=== PATIENT | male | born 1960 | race Caucasian/White ===

== ENCOUNTER → 2019-10-17 10:35 | Outpatient (CLI) | payer BC, SELFPAY ==
[2019-10-17 11:00] LABS: Bacteria Urine None Seen; RBC Urine None Seen (0-5/HPF)
[2019-10-17 11:52] LABS: Appearance Urine UA CLEAR; Bilirubin Urine UA NEGATIVE (NEGATIVE); Color Urine UA YELLOW; Glucose Urine UA NEGATIVE (Negative); Ketones Urine UA TRACE (NEGATIVE); Leukocyte Esterase Urine UA 1+ (NEGATIVE); Nitrite Urine UA NEGATIVE (Negative); Occult Blood Urine UA TRACE-LYSED (Negative); Protein Urine UA NEGATIVE (Negative); Urobilinogen Urine UA 0.2 E.U./dL (0.2)
[2019-10-17 12:01] LABS: Culture Indicated Urine Specimen Cultured; WBC Urine 1-5/HPF (0-5/HPF)
== END ==
PROVIDERS: PCP Student in an Organized Health Care Education/Training Program; Referring Provider Student in an Organized Health Care Education/Training Program; Visit Provider Student in an Organized Health Care Education/Training Program
DX: R31.9 Hematuria, unspecified (principal)
CPT/HCPCS: 81001; 87086

== ENCOUNTER → 2020-02-27 09:41 | Outpatient (CLI) | payer BC, SELFPAY ==
[2020-02-27 10:16] LABS: Hemoglobin A1C% w Est Avg Glu 7.5 % (4.0-6.0)
[2020-02-27 11:19] LABS: BUN Creatinine Ratio 22.5 (6-22); Blood Urea Nitrogen 18 mg/dL (9-20); Calcium 9.4 mg/dL (8.4-10.2); Carbon Dioxide 29 mmol/L (22-32); Chloride 98 mmol/L (98-107); Estimated Glomerular Filt Rate > 60.0 mL/min (>60); Glucose 299 mg/dL (80-110); HEMOLYSIS < 15 (0-50); Potassium 3.9 mmol/L (3.4-5.1); Sodium 136 mmol/L (137-145)
[2020-02-28 04:47] LABS: Creatinine Urine Random 75.1 mg/dL
[2020-02-28 04:54] LABS: Microalbumi Creatinin Ratio Ur 35.9 ug/mg CR (<30); Microalbumin Urine Random 2.7 mg/dL (0-1.6)
== END ==
PROVIDERS: PCP Student in an Organized Health Care Education/Training Program; Referring Provider Student in an Organized Health Care Education/Training Program; Visit Provider Student in an Organized Health Care Education/Training Program
DX: E11.65 Type 2 diabetes mellitus with hyperglycemia (principal); I10 Essential (primary) hypertension
CPT/HCPCS: 36415; 80048; 82043; 82570; 83036

== ENCOUNTER → 2020-07-11 08:30 | Outpatient (CLI) | payer BC, SELFPAY ==
[2020-07-11 10:40] LABS: Microalbumi Creatinin Ratio Ur 46.1 ug/mg CR (<30); Microalbumin Urine Random 7.1 mg/dL (0-1.6)
== END ==
PROVIDERS: PCP Student in an Organized Health Care Education/Training Program; Referring Provider Student in an Organized Health Care Education/Training Program; Visit Provider Student in an Organized Health Care Education/Training Program
DX: E11.65 Type 2 diabetes mellitus with hyperglycemia (principal)
CPT/HCPCS: 36415; 82043; 82570; 83036

== ENCOUNTER → 2021-03-09 12:08 | Outpatient (CLI) | payer BC, SELFPAY ==
[2021-03-09 13:54] LABS: Hemoglobin A1C% w Est Avg Glu 9.2 % (4.0-6.0)
[2021-03-09 14:43] LABS: Blood Urea Nitrogen 18 mg/dL (9-20); Estimated Glomerular Filt Rate > 60.0 mL/min (>60)
[2021-03-09 15:09] LABS: Prostate Specific Antigen Scrn 0.715 ng/mL (0.1-4.0)
== END ==
PROVIDERS: PCP Student in an Organized Health Care Education/Training Program; Referring Provider Student in an Organized Health Care Education/Training Program; Visit Provider Student in an Organized Health Care Education/Training Program
DX: E11.9 Type 2 diabetes mellitus without complications (principal); Z12.5 Encounter for screening for malignant neoplasm of prostate; I10 Essential (primary) hypertension
CPT/HCPCS: 36415; 82565; 83036; 84520; G0103

== ENCOUNTER 2021-05-30 11:38 | Emergency (ER) | payer BC, SELFPAY ==
[2021-05-30] VITALS (17 sets, daily range): BP systolic 170–185; BP diastolic 82–97; PULSE 61–68; RESP 11–21; TEMP 36.5; O2SAT 96–99; BMI 42.0
--- NOTE | 2021-05-30 12:10 | ED_ITS ---
HPI - Neuro Symptoms/Deficit General Chief Complaint: Altered Mental Status Stated Complaint: Rt side of face went numb, weird taste in mouth Time Seen by Provider: 05/30/21 11:55 Mode of arrival: Ambulatory History of Present Illness HPI Narrative: The patient was doing chores at home, he suddenly developed numbness to the right side of his face. Symptoms resolved within 2 minutes to 20 minutes. Although the numbness is gone, he feels like he is still coming out of dental anesthesia. He denies headache. He has no dental pain, no facial pain. He has no visual changes or eye discomfort. He has no visual deficits. He denies facial or extremity numbness or weakness. He denies confusion. The patient is hypertensive with systolic blood pressure 180 upon arrival. His normal blood pressure at home is in the 140-150 range. His blood pressures been moderate, but not treated. He is working out regularly, he is trying to lose weight and improve his health on all aspects. He has no history of CAD or CVA/TIA. On Anticoagulants: No Related Data Home Medications Medication Instructions Recorded Confirmed [cinnamon/chromiun] #0 17 03/09/21 Previous Rx's Medication Instructions Recorded Glucose: Test Strips strip BID #100 05/20/16 hydrochlorothiazide 25 mg tablet 25 mg PO DAILY #90 tab 01/05/21 alprazolam 0.5 mg tablet 0.5 mg PO BID PRN #10 tab 03/03/21 glipizide 5 mg tablet, extended 5 mg PO DAILY #90 tab 03/12/21 release 24 hr lisinopril 20 mg tablet 20 mg PO DAILY #90 tab 03/27/21 metformin 1,000 mg tablet 1,000 mg PO BIDCC #180 tab 03/27/21 levothyroxine 75 mcg tablet 75 mcg PO QDAY@0600 #90 tab 05/20/21 (Synthroid) omeprazole 20 mg capsule,delayed See Rx Instructions .ROUTE 05/20/21 release .COMPLEX #90 capsule lisinopril 5 mg tablet 5 mg PO DAILY #30 tab 05/30/21 Allergies Allergy/AdvReac Type Severity Reaction Status Date / Time Ijlpvfs-EXV-OrV Reductase Allergy Intermediate memory Verified 03/09/21 11:26 Inhibitor issues [Fafvfek-Ohh-Nrp Reductase Inhibitor] pneumonia vaccine Allergy Unknown severe Uncoded 03/09/21 11:26 itching and swelling in left arm Review of Systems Constitutional Constitutional: Reports as per HPI, Denies body ache(s), Denies chills, Denies fatigue and Denies fever(s) Eyes Eyes: Denies blurry vision and Denies change in vision ENT Ears, Nose, Mouth, and Throat: Denies vertigo, Denies dizziness, Denies sinus pain, Denies sinus pressure and Denies sore throat Cardiovascular Cardiovascular: Denies chest pain, Denies syncope, Denies rapid heart rate and Denies pedal edema Respiratory Respiratory: Denies chest congestion and Denies cough Gastrointestinal Gastrointestinal: Denies abdominal pain, Denies nausea and Denies vomiting Genitourinary Genitourinary: Denies dysuria Musculoskeletal Musculoskeletal: Denies arthralgias and Denies myalgias Integumentary/Breasts Skin/Breast: Denies lesions and Denies rash Neurologic Neurologic: Denies confusion, Denies vertigo, Denies dizziness and Denies syncope Psychiatric Psychiatric: Denies confusion Endocrine Endocrine: Denies fatigue Hematologic/Lymphatic On Anticoagulants: No Patient History Medical History (Updated 05/30/21 @ 16:20 by Maynor Gomez MD) Diabetes mellitus Hypertension Hypothyroidism Painless hematuria Social History Smoking Status: Never smoker Smoking Status: Never smoker Exam Initial Vital Signs Initial Vital Signs: Vital Signs Temperature 97.7 F 05/30/21 11:52 Pulse Rate 68 05/30/21 11:52 Respiratory Rate 18 05/30/21 11:52 Blood Pressure 182/91 H 05/30/21 11:52 Pulse Oximetry 97 05/30/21 11:52 Const General: cooperative, healthy appearing and comfortable Nutritional Appearance: obese Orientation: Orientation (X3) [facility] Head: normal to inspection, normocephalic and atraumatic Face and sinus: normal facial exam Mouth: oral mucosae normal Eyes Conjunctivae: conjunctivae normal Sclera: sclerae normal Cornea: corneas normal Pupils: PERRL EOM: EOM intact bilaterally Other: No visual field deficits Neck Neck: No lymphadenopathy, No tender and other (No bruits) Resp Auscultation: clear to auscultation bilaterally Cardio Rate: regular rate Rhythm: regular rhythm Heart Sounds: S1 normal, S2 normal and no murmurs Back/Spine/Pelvis Back: normal to inspection and No back tenderness Skin General: no rashes or lesions noted Neuro General: patient alert, patient oriented x3 and oriented (x3) Other: NIHSS is 0. Extrem General: normal to inspection, full ROM and no pedal edema Psych Appearance: grossly normal and well kempt Speech and Movement: speech and movement normal Course Course Course Narrative: Head CT is normal. Cardiovascular evaluation is normal other than hypertension. He had persistent systolic blood pressure in the upper 170-180 range. I started him lisinopril 5 mg p.o.. His BP improved to 170 systolic. I also start him on aspirin. He has normal nausea exam, he is normal head CT, but is complaints of the right facial numbness is still of some concern. He should follow-up with his PCM this coming week. Orders Ordered: ED Orders 05/30/21 12:07 Basic Metabolic Panel Stat Complete Blood Count AUTO DIFF Stat 05/30/21 12:23 CT head/brain wo con Stat Sodium Chloride (Normal Saline 0.9%) 1,000 mls @ 150 mls/hr IV CONT RICKY Last Admin: 05/30/21 13:15 Dose: 150 mls/hr Documented by: SPENCER Discontinued Medications Aspirin (Aspirin 81 Mg Chew Tab) 324 mg PO NOW ONE Stop: 05/30/21 13:54 Last Admin: 05/30/21 14:53 Dose: 324 mg Documented by: SPENCER Lisinopril (Lisinopril 5 Mg Tablet) 5 mg PO NOW ONE Stop: 05/30/21 14:24 Last Admin: 05/30/21 14:51 Dose: 5 mg Documented by: SPENCER Vital Signs Vital signs: Vital Signs - 8 hr 05/30/21 11:52 05/30/21 12:22 05/30/21 12:30 Temperature 97.7 F Pulse Rate 68 66 62 Respiratory Rate 18 Blood Pressure 182/91 H Pulse Oximetry 97 98 97 05/30/21 12:34 05/30/21 15:21 Temperature Pulse Rate 62 Respiratory Rate 18 Blood Pressure 185/87 H 181/87 H Pulse Oximetry 99 MDM - Neuro Symptoms/Deficit Lab Data Result diagrams: 05/30/21 12:07 05/30/21 12:07 Labs: Lab Results 05/30/21 05/30/21 Range/Units 12:07 12:07 WBC 6.3 (4.5-11.0) X10^3/uL RBC 4.52 (4.5-5.9) X10^6/uL Hgb 13.3 L (13.5-17.5) g/dL Hct 39.0 L (41-53) % MCV 86.3 (80-100) fL MCH 29.4 (26-34) PG MCHC 34.0 (30-36) % RDW 13.8 (11.6-14.8) % Plt Count 216 (150-400) X10^3/uL Neut % (Auto) 66.0 (50-75) % Lymph % (Auto) 22.3 L (25-40) % [place] % (Auto) 9.8 (3-14) % Eos % (Auto) 1.4 L (2-4) % Baso % (Auto) 0.5 (0-2) % Neut # (Auto) 4100 (6853-3445) /uL Lymph # (Auto) 1400 (2545-7984) /uL [place] # (Auto) 600 (0-900) /uL Eos # (Auto) 100 (0-450) /uL Baso # (Auto) 0 (0-100) /uL Sodium 138 (137-145) mmol/L Potassium 3.9 (3.4-5.1) mmol/L Chloride 100 (98-107) mmol/L Carbon Dioxide 30 (22-32) mmol/L BUN 14 (9-20) mg/dL Creatinine 0.86 (0.66-1.25) mg/dL Estimated GFR > 60.0 (>60) mL/min BUN/Creatinine Ratio 16.3 (6-22) Glucose 187 H (80-110) mg/dL Calcium 9.4 (8.4-10.2) mg/dL Point of Care Testing Glucose POC [address] scan - head: Radiologist's Impression: No acute process ECG Data Attestation: I personally reviewed and interpreted this ECG as follows: (Normal sinus rhythm rate 66 beats per minute. Questionable LVH. Normal intervals. No ectopy. No acute ST T wave changes.) Discharge Plan Departure Patient Disposition: Home Clinical Impression: Benign essential hypertension Instructions: Essential Hypertension Activity Restrictions/Additional Instructions: Lisinopril 5 mg daily. The prescription has been forwarded to [facility] pharmacy in [place]. I recommend baby aspirin 1 daily. Continue other medications. Monitor blood pressure daily. Keep a record of your home blood pressure monitoring and follow up with her PCM this coming week. Return here as necessary Prescriptions: New lisinopril 5 mg tablet 5 mg PO DAILY Qty: 30 0RF No Action Glucose: Test Strips BID Qty: 100 11RF [cinnamon/chromiun] Qty: 0 0RF hydrochlorothiazide 25 mg tablet 25 mg PO DAILY Qty: 90 1RF alprazolam 0.5 mg tablet 0.5 mg PO BID PRN (Reason: anxiety) Qty: 10 0RF metformin 1,000 mg tablet 1,000 mg PO BIDCC Qty: 180 1RF lisinopril 20 mg tablet 20 mg PO DAILY Qty: 90 1RF omeprazole 20 mg capsule,delayed release(DR/EC) See Rx Instructions .ROUTE .COMPLEX Qty: 90 2RF Dose Instruction: TAKE 1 CAPSULE BY MOUTH DAILY Rx Instructions: TAKE 1 CAPSULE BY MOUTH DAILY levothyroxine [Synthroid] 75 mcg tablet 75 mcg PO QDAY@0600 Qty: 90 2RF glipizide 5 mg tablet extended release 24hr 5 mg PO DAILY Qty: 90 1RF Referrals: Rex Salinas MD [Primary Care Provider] -
--- NOTE | 2021-05-30 12:23 | DI.CT.S_ITS ---
PROCEDURE: CT HEAD/BRAIN WO CON INDICATIONS: Right facial numbness TECHNIQUE: Noncontrast 4.5 mm thick angled axial sections acquired from the foramen magnum to the vertex, with coronal and sagittal reformats. For radiation dose reduction, the following was used: automated exposure control, adjustment of mA and/or kV according to patient size. COMPARISON: None. FINDINGS: Image quality: Excellent. CSF spaces: Basal cisterns are patent. No extra-axial fluid collections. The ventricles are symmetric in size and shape. Brain: No intracranial bleeds or masses. There is cerebral volume loss for age, with resultant ventricular and sulcal prominence. There are periventricular and deep white matter chronic small vessel ischemic changes. There is intracranial internal carotid artery atherosclerosis. Skull and face: Calvarium and visualized facial bones appear intact, without suspicious lesions. Sinuses: Visualized sinuses and mastoids are clear. IMPRESSION: No acute intracranial abnormality. Dictated by: Delroy Lynch M.D. on 05/30/2021 at 12:22 Approved by: Delroy Lynch M.D. on 05/30/2021 at 12:22
--- NOTE | 2021-05-30 12:28 | PC.NURSE ---
pt states at aproxx 1130 he had am episode lasting 3 min L sided face and lips numbess and tingling. Now pt states a funny taste in mouth like a Novocaine wearing off pt with full ROM and strength in all extremities sensation intact and neuro intact. EKG completed and DR Gomez in to asses pt.
[2021-05-30 13:05] LABS: Add Manual Diff / Slide Review NO; Basophils Absolute Auto 0 /uL (0-100); Basophils Percent Auto 0.5 % (0-2); Eosinophils Absolute Auto 100 /uL (0-450); Eosinophils Percent Auto 1.4 % (2-4); Hemoglobin 13.3 g/dL (13.5-17.5); Lymphocytes Absolute Auto 1400 /uL (1100-4500); Lymphocytes Percent Auto 22.3 % (25-40); Mean Corpuscular Hemoglobin 29.4 PG (26-34); Mean Corpuscular Volume 86.3 fL (80-100); Monocytes Absolute Auto 600 /uL (0-900); Monocytes Percent Auto 9.8 % (3-14); Neutrophils Absolute Auto 4100 /uL (1500-7000); Platelet Count 216 X10^3/uL (150-400); Red Blood Cell Count 4.52 X10^6/uL (4.5-5.9); Red Cell Distribution Width 13.8 % (11.6-14.8); White Blood Cell Count 6.3 X10^3/uL (4.5-11.0)
[2021-05-30 13:10] LABS: BUN Creatinine Ratio 16.3 (6-22); Blood Urea Nitrogen 14 mg/dL (9-20); Calcium 9.4 mg/dL (8.4-10.2); Carbon Dioxide 30 mmol/L (22-32); Chloride 100 mmol/L (98-107); Estimated Glomerular Filt Rate > 60.0 mL/min (>60); Glucose 187 mg/dL (80-110); HEMOLYSIS < 15 (0-50); Potassium 3.9 mmol/L (3.4-5.1); Sodium 138 mmol/L (137-145)
[2021-05-30] MEDS: SODIUM CHLORIDE 0.9% 1,000 ML 150 ML IV (13:15)
[2021-05-30] MEDS: lisinopriL 5 MG TABLET PO (14:51)
[2021-05-30] MEDS: ASPIRIN 81 MG CHEW TAB 324 MG PO (14:53)
== END 2021-05-30 16:31 | disposition home or self-care (01) ==
PROVIDERS: Emergency Provider Emergency Medicine; PCP Student in an Organized Health Care Education/Training Program
DX: R20.2 Paresthesia of skin (principal); I10 Essential (primary) hypertension
CPT/HCPCS: 36415; 70450; 80048; 82962; 85025; 93005; 93010; 96360; 96361; 99284; 99285

== ENCOUNTER → 2021-08-21 14:22 | Outpatient (CLI) | payer BC, SELFPAY ==
[2021-08-21 14:58] LABS: BUN Creatinine Ratio 17.2 (6-22); Blood Urea Nitrogen 16 mg/dL (9-20); Estimated Glomerular Filt Rate > 60.0 mL/min (>60)
[2021-08-21 15:07] LABS: Creatinine Urine Random 184.4 mg/dL
[2021-08-21 15:26] LABS: Microalbumi Creatinin Ratio Ur 200.1 ug/mg CR (<30); Microalbumin Urine Random 36.9 mg/dL (0-1.6)
[2021-08-22 07:13] LABS: Fructosamine 277 umol/L (0-285)
== END ==
PROVIDERS: PCP Student in an Organized Health Care Education/Training Program; Referring Provider Student in an Organized Health Care Education/Training Program; Visit Provider Student in an Organized Health Care Education/Training Program
DX: E11.29 Type 2 diabetes mellitus with other diabetic kidney complication (principal); R80.9 Proteinuria, unspecified; E11.9 Type 2 diabetes mellitus without complications
CPT/HCPCS: 36415; 82043; 82565; 82570; 82985; 84520

== ENCOUNTER 2021-09-16 23:53 | Emergency (ER) | payer BC, SELFPAY ==
[2021-09-17] VITALS (7 sets, daily range): BP systolic 155–191; BP diastolic 76–102; PULSE 58–68; RESP 18; TEMP 36.6; O2SAT 96–100; BMI 43.9
--- NOTE | 2021-09-17 00:06 | DI.RAD.S_ITS ---
PROCEDURE: XR CHEST 1V INDICATIONS: chest pain TECHNIQUE: One view of the chest was acquired. COMPARISON: None. FINDINGS: Surgical changes and devices: None. Lungs and pleura: Evaluation is limited by lordotic projection. No definite acute airspace opacities, with evaluation limited in the lung bases due to technique. No pleural effusions or pneumothorax. Mediastinum: Mediastinal contours appear normal. Heart size is enlarged. Bones and chest wall: No suspicious bony lesions. Overlying soft tissues appear unremarkable. IMPRESSION: 1. Limited study demonstrates no definite acute cardiopulmonary disease but evaluation of the lung bases is limited. If clinical concern persists, a repeat PA and lateral study may be performed for further evaluation. Dictated by: Shar Terrazas M.D. on 09/17/2021 at 0:41 Approved by: Shar Terrazas M.D. on 09/17/2021 at 0:42
[2021-09-17 00:29] LABS: Add Manual Diff / Slide Review NO; Basophils Absolute Auto 100 /uL (0-100); Basophils Percent Auto 0.7 % (0-2); Eosinophils Absolute Auto 200 /uL (0-450); Eosinophils Percent Auto 2.2 % (2-4); Hematocrit 38.7 % (41-53); Hemoglobin 13.2 g/dL (13.5-17.5); Lymphocytes Absolute Auto 2500 /uL (1100-4500); Lymphocytes Percent Auto 34.6 % (25-40); Mean Corpuscular HGB Conc 34.2 % (30-36); Mean Corpuscular Hemoglobin 29.6 PG (26-34); Mean Corpuscular Volume 86.5 fL (80-100); Monocytes Absolute Auto 700 /uL (0-900); Monocytes Percent Auto 9.4 % (3-14); Neutrophils Absolute Auto 3900 /uL (1500-7000); Neutrophils Percent Auto 53.1 % (50-75); Platelet Count 201 X10^3/uL (150-400); Red Blood Cell Count 4.47 X10^6/uL (4.5-5.9); Red Cell Distribution Width 14.4 % (11.6-14.8); White Blood Cell Count 7.3 X10^3/uL (4.5-11.0)
[2021-09-17 00:31] LABS: Alanine Aminotransferase 23 IU/L (<50); Albumin 4.6 g/dL (3.5-5.0); Albumin Globulin Ratio 1.4 (1.0-2.8); Alkaline Phosphatase 56 U/L (38-126); Aspartate Aminotransferase 18 IU/L (17-59); BUN Creatinine Ratio 25.6 (6-22); Bilirubin Total 0.4 mg/dL (0.2-1.3); Blood Urea Nitrogen 22 mg/dL (9-20); Calcium 9.3 mg/dL (8.4-10.2); Carbon Dioxide 27 mmol/L (22-32); Chloride 104 mmol/L (98-107); Creatine Kinase 118 U/L (55-170); Estimated Glomerular Filt Rate > 60.0 mL/min (>60); Globulin 3.3 g/dL (1.7-4.1); Glucose 85 mg/dL (80-110); HEMOLYSIS < 15 (0-50); Lipase 178 U/L (23-300); Magnesium 1.9 mg/dL (1.6-2.3); Potassium 3.5 mmol/L (3.4-5.1); Sodium 138 mmol/L (137-145); Total Protein 7.9 g/dL (6.3-8.2)
[2021-09-17 00:42] LABS: Troponin I 0.024 ng/mL (0.01-0.034)
[2021-09-17 00:46] LABS: CKMB % Relative Index 2.5 % (1.5-5.0); Creatine Kinase MB 2.97 ng/mL (<2.37)
[2021-09-17 01:18] LABS: Appearance Urine UA CLEAR; Bilirubin Urine UA NEGATIVE (NEGATIVE); Color Urine UA YELLOW; Glucose Urine UA NEGATIVE (Negative); Ketones Urine UA 1+ (NEGATIVE); Leukocyte Esterase Urine UA 3+ (NEGATIVE); Nitrite Urine UA NEGATIVE (Negative); Occult Blood Urine UA 1+ (Negative); Protein Urine UA NEGATIVE (Negative); Urobilinogen Urine UA 0.2 E.U./dL (0.2); pH Urine UA 5.5 (4.5-8.0)
[2021-09-17 01:31] LABS: Bacteria Urine None Seen; Culture Indicated Urine Specimen Cultured; RBC Urine 1-5/HPF (0-5/HPF); WBC Urine 10-30/HPF (0-5/HPF)
--- NOTE | 2021-09-17 02:39 | ED.BACK ---
HPI - Back Pain/Injury General Chief Complaint: Back Pain/Injury Stated Complaint: PAIN IN LEFT SIDE AND BACK Time Seen by Provider: 09/17/21 02:01 Source: patient History of Present Illness HPI Narrative: 61-year-old gentleman with a BMI of 45, hypertension, diabetes, hypothyroidism, presents with left-sided abdominal pain that radiates down into his flank and up into his left upper quadrant. Began this morning and has progressively gotten worse over the course of the day. He notes that he did have a bowel movement this morning that did not not influence the pain. He denies fevers, cough, vomiting. He has not had any chest pain or palpitations. No cough, lower extremity edema or orthopnea. Related Data Previous Rx's Medication Instructions Recorded Glucose: Test Strips strip BID #100 05/20/16 alprazolam 0.5 mg tablet 0.5 mg PO BID PRN #10 tab 03/03/21 lisinopril 20 mg tablet 20 mg PO DAILY #90 tab 03/27/21 metformin 1,000 mg tablet 1,000 mg PO BIDCC #180 tab 03/27/21 levothyroxine 75 mcg tablet 75 mcg PO QDAY@0600 #90 tab 05/20/21 (Synthroid) omeprazole 20 mg capsule,delayed See Rx Instructions .ROUTE 05/20/21 release .COMPLEX #90 capsule glipizide 5 mg tablet, extended 5 mg PO DAILY #90 tab 06/11/21 release 24 hr hydrochlorothiazide 25 mg tablet 25 mg PO DAILY #90 tab 07/06/21 carvedilol 6.25 mg tablet 6.25 mg PO BID #180 tab 08/25/21 oxycodone-acetaminophen 5 mg-325 1 tab PO Q6H PRN #14 tab 09/17/21 mg tablet Allergies Allergy/AdvReac Type Severity Reaction Status Date / Time Qmymilk-LNE-AvU Reductase Allergy Intermediate memory Verified 06/11/21 12:59 Inhibitor issues [Skahydm-Mtb-Fme Reductase Inhibitor] pneumonia vaccine Allergy Unknown severe Uncoded 06/11/21 12:59 itching and swelling in left arm Review of Systems Review of Systems Narrative: Remainder of complete review of systems is otherwise unremarkable except for that included in the HPI. Patient History Medical History Benign essential hypertension Hypothyroidism Painless hematuria Type 2 diabetes mellitus Social History Smoking Status: Never smoker Smoking Status: Never smoker Substance Use Type: does not use Exam Initial Vital Signs Initial Vital Signs: Vital Signs Temperature 97.8 F 09/17/21 00:00 Pulse Rate 68 09/17/21 00:00 Respiratory Rate 18 09/17/21 00:00 Blood Pressure 191/102 H 09/17/21 00:00 Pulse Oximetry 100 09/17/21 00:00 General: Healthy appearing, in no acute distress. Able to give a complete and coherent history. Well-nourished well-developed HEENT: Moist mucous membranes, normal sclera with reactive pupils, Neck: No JVD, supple Respiratory: Lungs are clear to auscultation, no wheezing no rales no rhonchi. Full and symmetrical air movement Cardiac: Regular rate and rhythm no murmurs no bruits Abdomen: Soft, obese, tender in the left upper quadrant radiating down into the left flank without rebound or guarding. Not particularly tender in the left or right lower quadrants. No epigastric or right upper quadrant tenderness. Skin: Warm and dry, no rashes Neurologic: Grossly neurologically intact with no obvious asymmetries or abnormalities Extremities: No trauma, well perfused Psych: Cooperative, appropriate insight and affect Course Orders Ordered: ED Orders 09/17/21 00:06 XR chest 1V Stat EKG-12 Lead Stat 09/17/21 00:11 Complete Blood Count AUTO DIFF Stat Comprehensive Metabolic Panel Stat Lipase Stat Magnesium Stat Troponin & CK Cardiac Panel Stat 09/17/21 00:52 Urinalysis and Microscopic Stat Urine Culture Stat 09/17/21 02:45 CT abdomen pelvis w con Stat Vital Signs Vital signs: Vital Signs - 8 hr 09/17/21 00:00 09/17/21 01:57 09/17/21 01:58 Temperature 97.8 F Pulse Rate 68 61 Respiratory Rate 18 Blood Pressure 191/102 H 157/76 H Pulse Oximetry 100 97 98 09/17/21 02:00 09/17/21 02:30 Temperature Pulse Rate 58 L 62 Respiratory Rate Blood Pressure 155/77 H 162/79 H Pulse Oximetry 96 96 MDM - Back Pain/Injury Lab Data Result diagrams: 09/17/21 00:11 09/17/21 00:11 Labs: Lab Results 09/17/21 09/17/21 09/17/21 Range/Units 00:11 00:11 00:52 WBC 7.3 (4.5-11.0) X10^3/uL RBC 4.47 L (4.5-5.9) X10^6/uL Hgb 13.2 L (13.5-17.5) g/dL Hct 38.7 L (41-53) % MCV 86.5 (80-100) fL MCH 29.6 (26-34) PG MCHC 34.2 (30-36) % RDW 14.4 (11.6-14.8) % Plt Count 201 (150-400) X10^3/uL Neut % (Auto) 53.1 (50-75) % Lymph % (Auto) 34.6 (25-40) % [place] % (Auto) 9.4 (3-14) % Eos % (Auto) 2.2 (2-4) % Baso % (Auto) 0.7 (0-2) % Neut # (Auto) 3900 (2098-3036) /uL Lymph # (Auto) 2500 (0367-8474) /uL [place] # (Auto) 700 (0-900) /uL Eos # (Auto) 200 (0-450) /uL Baso # (Auto) 100 (0-100) /uL Sodium 138 (137-145) mmol/L Potassium 3.5 (3.4-5.1) mmol/L Chloride 104 (98-107) mmol/L Carbon Dioxide 27 (22-32) mmol/L BUN 22 H (9-20) mg/dL Creatinine 0.86 (0.66-1.25) mg/dL Estimated GFR > 60.0 (>60) mL/min BUN/Creatinine Ratio 25.6 H (6-22) Glucose 85 (80-110) mg/dL Calcium 9.3 (8.4-10.2) mg/dL Magnesium 1.9 (1.6-2.3) mg/dL Total Bilirubin 0.4 (0.2-1.3) mg/dL AST 18 (17-59) IU/L ALT 23 (<50) IU/L Alkaline Phosphatase 56 (38-126) U/L Total Creatine Kinase 118 (55-170) U/L CK-MB (CK-2) 2.97 H (<2.37) ng/mL CK-MB (CK-2) Rel Index 2.5 (1.5-5.0) % Troponin I 0.024 (0.01-0.034) ng/mL Total Protein 7.9 (6.3-8.2) g/dL Albumin 4.6 (3.5-5.0) g/dL Globulin 3.3 (1.7-4.1) g/dL Albumin/Globulin Ratio 1.4 (1.0-2.8) Lipase 178 (23-300) U/L Urine Color Yellow Urine Appearance Clear Urine pH 5.5 (4.5-8.0) Ur Specific [place] 1.020 (1.000-1.035) Urine Protein Negative (Negative) Urine Glucose (UA) Negative (Negative) g/dL Urine Ketones 1+ H (NEGATIVE) Urine Occult Blood 1+ H (Negative) Urine Nitrate Negative (Negative) Urine Bilirubin Negative (NEGATIVE) Urine Urobilinogen 0.2 (0.2) E.U./dL Ur Leukocyte Esterase 3+ H (NEGATIVE) Urine RBC 1-5/hpf (0-5/HPF) Urine WBC 10-30/hpf H (0-5/HPF) Urine Bacteria None seen (None) Ur Culture Indicated? Specimen cultured Imaging Data Chest x-ray: Radiologist's Impression: FINDINGS:? ? Surgical changes and devices:? None.? ? Lungs and pleura:? Evaluation is limited by lordotic projection.? No definite acute airspace opacities, with evaluation limited in the lung bases due to technique.? No pleural effusions or pneumothorax.? ? Mediastinum:? Mediastinal contours appear normal.? Heart size is enlarged.? ? Bones and chest wall:? No suspicious bony lesions.? Overlying soft tissues appear unremarkable.? ? IMPRESSION:? ? 1. Limited study demonstrates no definite acute cardiopulmonary disease but evaluation of the lung bases is limited.? If clinical concern persists, a repeat PA and lateral study may be performed for further evaluation. ? ? Dictated by: Shar Terrazas M.D. on 09/17/2021 at 0:41 ? ? CT scan - abdomen/pelvis: Radiologist's Impression: No evidence of colitis, diverticulitis, bowel obstruction, obstructive uropathy or acute appendicitis. Ill-defined stranding noted at the root of the mesentery with associated prominent yet subcentimeter mesenteric lymph nodes. This is a nonspecific finding but can be seen in the setting of mesenteric panniculitis. Terri Stanley MD [facility] Narrative Medical decision making narrative: 61-year-old gentleman with increasing pain in the left upper and left flank area the last 24 hours. No fevers no diarrhea he states he is having regular bowel movements. Lab work is actually fairly reassuring. He has multiple white blood cells leukocyte esterase occult blood and ketones in his urine. He does have a history of asymptomatic hematuria. He is not having any urinary urgency, burning or frequency. With the description of the increasing pain in an area that does not completely correspond with the single organ her system I am going to suggest that we proceed with CT scan. Discharge Plan Departure Patient Disposition: Home Clinical Impression: Mesenteric panniculitis Activity Restrictions/Additional Instructions: Thank you for coming in today Your workup does not suggest an acute life-threatening issue today. There is no obvious infection, tumor or mass or anything that needs hospitalization for further workup at this time. Your to CT scan suggests that you may have mesenteric panniculitis. I have printed out some information for you to read. The most likely outcome for you pain is that it will go away by itself. If you are having worsening pain, diarrhea, bloody diarrhea, vomiting or other issues further workup and a definitive diagnosis of mesenteric panniculitis will need to be made. If you do have persistent symptoms, please follow-up with your primary care provider In the meantime, using 400 mg of ibuprofen (2 rohh-tje-cjfnzny pills) and 1 Tylenol every 6 hours can be very helpful in controlling pain. For severe pain you can use to ibuprofen and 1 Percocet. If you do choose to use Percocet please note that it can cause constipation which can make her symptoms worse. I wish you the best Prescriptions: New oxycodone-acetaminophen 5-325 mg tablet 1 tab PO Q6H PRN (Reason: pain) Qty: 14 0RF No Action Glucose: Test Strips BID Qty: 100 11RF alprazolam 0.5 mg tablet 0.5 mg PO BID PRN (Reason: anxiety) Qty: 10 0RF metformin 1,000 mg tablet 1,000 mg PO BIDCC Qty: 180 1RF Hold Instructions: needs labs lisinopril 20 mg tablet 20 mg PO DAILY Qty: 90 1RF omeprazole 20 mg capsule,delayed release(DR/EC) See Rx Instructions .ROUTE .COMPLEX Qty: 90 2RF Dose Instruction: TAKE 1 CAPSULE BY MOUTH DAILY Rx Instructions: TAKE 1 CAPSULE BY MOUTH DAILY levothyroxine [Synthroid] 75 mcg tablet 75 mcg PO QDAY@0600 Qty: 90 2RF hydrochlorothiazide 25 mg tablet 25 mg PO DAILY Qty: 90 1RF Hold Instructions: needs labs carvedilol 6.25 mg tablet 6.25 mg PO BID Qty: 180 2RF Rx Instructions: must administer with a meal/food glipizide 5 mg tablet extended release 24hr 5 mg PO DAILY Qty: 90 1RF Hold Instructions: needs labs Referrals: Rex Salinas MD [Primary Care Provider] -
--- NOTE | 2021-09-17 02:45 | DI.CT.S_ITS ---
PROCEDURE: CT ABDOMEN PELVIS W CON INDICATIONS: left side pain - flank and LUQ TECHNIQUE: After the administration of oral and IV contrast, axial sections were acquired from the lung bases to the pubic symphysis. Coronal and sagittal reformats were performed. For radiation dose reduction, the following was used: automated exposure control, adjustment of mA and/or kV according to patient size. COMPARISON: US, ABDOMEN COMPLETE, 12/29/2010, 7:30. FINDINGS: Image quality: Excellent. Lung bases: Unremarkable. Small hiatal hernia Heart: No significant findings. ABDOMEN: Liver: Unremarkable. Gallbladder: There are gallstones. No gallbladder wall thickening or pericholecystic fluid collection. Biliary ducts: Unremarkable. Pancreas: Unremarkable. Spleen: Unremarkable. Adrenal Glands: Unremarkable. Kidneys and Ureters: There are couple of nonobstructive stones in the inferior pole of the right kidney measuring 2 mm and 11 mm. The larger stone demonstrates CT density 990 HU. A 2.5 cm cyst is seen in right kidney and a 3.1 cm cyst is seen in the left kidney. Stomach and Bowel: Stomach, small bowel loops, and colon are normal in caliber. Normal appendix. Mild diverticulosis without diverticulitis Peritoneum: No abnormal intraperitoneal fluid. No free air. Ventral Wall: No hernia. Abdominal Nodes: No retroperitoneal or mesenteric adenopathy by size criteria. Mild mesenteric stranding and small normal-sized mesenteric lymph nodes are seen, nonspecific. Vessels: Aorta and inferior vena cava are normal in size. PELVIS: Pelvic Organs: Unremarkable. Bladder: Unremarkable. Pelvic Nodes: No enlarged lymph nodes. Miscellaneous: No inguinal hernias are seen. Bones: Moderate degenerative changes in lumbar spine. IMPRESSION: 1. A cause for left upper quadrant abdominal pain is not identified. 2. Cholelithiasis. No CT findings to suggest acute cholecystitis. 3. Nephrolithiasis in right kidney. No hydronephrosis. 4. Bilateral renal cysts. 5. Mild diverticulosis without diverticulitis. No significant discrepancy with the night shift manager radiology preliminary report. Dictated by: Esperanza Lr M.D. on 09/17/2021 at 8:05 Approved by: Esperanza Lr M.D. on 09/17/2021 at 8:12
[2021-09-17] MEDS: OXYCODONE/APAP 5/325 PREPACK 1 BOTTLE MISC (04:39)
== END 2021-09-17 04:44 | disposition home or self-care (01) ==
PROVIDERS: Emergency Provider Emergency Medicine; PCP Student in an Organized Health Care Education/Training Program
DX: K65.4 Sclerosing mesenteritis (principal)
CPT/HCPCS: 36415; 71045; 74177; 80053; 81001; 82550; 82553; 83690; 83735; 84484; 85025; 87086; 93005; 99284; Q9967

== ENCOUNTER → 2021-12-08 09:50 | Outpatient (CLI) | payer BC, SELFPAY ==
[2021-12-08 12:00] LABS: BUN Creatinine Ratio 17.3 (6-22); Blood Urea Nitrogen 13 mg/dL (9-20); Estimated Glomerular Filt Rate > 60 mL/min (>60)
[2021-12-08 12:26] LABS: Hemoglobin A1C% w Est Avg Glu 7.6 % (4.0-6.0)
== END ==
PROVIDERS: PCP Student in an Organized Health Care Education/Training Program; Referring Provider Student in an Organized Health Care Education/Training Program; Visit Provider Student in an Organized Health Care Education/Training Program
DX: E11.29 Type 2 diabetes mellitus with other diabetic kidney complication (principal); R80.9 Proteinuria, unspecified
CPT/HCPCS: 36415; 82565; 83036; 84520

== ENCOUNTER → 2022-04-13 14:35 | Outpatient (CLI) | payer BC, SELFPAY ==
--- NOTE | 2022-04-13 14:36 | DI.RAD.S_ITS ---
PROCEDURE: XR CHEST 2V INDICATIONS: right anterior chest pain, worse w/movement TECHNIQUE: 2 views of the chest were acquired. COMPARISON: [facility], CR, XR CHEST 1V, 09/17/2021, 0:08. FINDINGS: Surgical changes and devices: None. Lungs and pleura: Lungs are clear. No pleural effusions or pneumothorax. Mediastinum: Mediastinal contours are normal. Heart size is normal. Bones and chest wall: No suspicious bony abnormalities. Soft tissues appear unremarkable. IMPRESSION: No acute cardiopulmonary findings. Dictated by: Elsie Nichols M.D. on 04/13/2022 at 15:03 Approved by: Elsie Nichols M.D. on 04/13/2022 at 15:04
== END ==
PROVIDERS: PCP Student in an Organized Health Care Education/Training Program; Referring Provider Student in an Organized Health Care Education/Training Program; Visit Provider Student in an Organized Health Care Education/Training Program
DX: R07.9 Chest pain, unspecified (principal)
CPT/HCPCS: 71046

== ENCOUNTER → 2022-04-14 09:14 | Outpatient (CLI) | payer BC, SELFPAY ==
[2022-04-14 09:37] LABS: Add Manual Diff / Slide Review NO; Basophils Absolute Auto 100 /uL (0-100); Eosinophils Absolute Auto 200 /uL (0-450); Eosinophils Percent Auto 3.9 % (2-4); Hematocrit 38.5 % (41-53); Hemoglobin 13.3 g/dL (13.5-17.5); Lymphocytes Absolute Auto 1700 /uL (1100-4500); Lymphocytes Percent Auto 30.4 % (25-40); Mean Corpuscular HGB Conc 34.5 % (30-36); Mean Corpuscular Hemoglobin 29.5 PG (26-34); Mean Corpuscular Volume 85.6 fL (80-100); Monocytes Absolute Auto 600 /uL (0-900); Monocytes Percent Auto 10.3 % (3-14); Neutrophils Absolute Auto 3100 /uL (1500-7000); Neutrophils Percent Auto 54.4 % (50-75); Platelet Count 199 X10^3/uL (150-400); Red Cell Distribution Width 13.4 % (11.6-14.8); White Blood Cell Count 5.6 X10^3/uL (4.5-11.0)
[2022-04-14 09:43] LABS: D Dimer 438 ng/ml (<500)
[2022-04-14 09:46] LABS: Alanine Aminotransferase 75 IU/L (<50); Albumin 4.4 g/dL (3.5-5.0); Albumin Globulin Ratio 1.4 (1.0-2.8); Alkaline Phosphatase 71 U/L (38-126); Aspartate Aminotransferase 25 IU/L (17-59); Bilirubin Total 0.4 mg/dL (0.2-1.3); Blood Urea Nitrogen 13 mg/dL (9-20); Carbon Dioxide 27 mmol/L (22-32); Chloride 98 mmol/L (98-107); Creatine Kinase 75 U/L (55-170); Estimated Glomerular Filt Rate > 60 mL/min (>60); Globulin 3.2 g/dL (1.7-4.1); Glucose 299 mg/dL (80-110); HEMOLYSIS < 15 (0-50); Potassium 3.9 mmol/L (3.4-5.1); Sodium 136 mmol/L (137-145); Total Protein 7.6 g/dL (6.3-8.2)
== END ==
PROVIDERS: PCP Student in an Organized Health Care Education/Training Program; Referring Provider Student in an Organized Health Care Education/Training Program; Visit Provider Student in an Organized Health Care Education/Training Program
DX: R07.9 Chest pain, unspecified (principal); R07.89 Other chest pain
CPT/HCPCS: 80053; 82550; 84484; 85025; 85379

== ENCOUNTER → 2022-06-15 11:38 | Outpatient (ROUT) | payer OTHER, SELFPAY ==
[2022-06-15 11:59] LABS: Creatinine Urine Random 64.9 mg/dL
[2022-06-15 12:04] LABS: Microalbumi Creatinin Ratio Ur 115.5 ug/mg CR (<30); Microalbumin Urine Random 7.5 mg/dL (0-1.6)
== END ==
PROVIDERS: PCP Student in an Organized Health Care Education/Training Program; Visit Provider Student in an Organized Health Care Education/Training Program
DX: E11.9 Type 2 diabetes mellitus without complications (principal); R80.9 Proteinuria, unspecified
CPT/HCPCS: 82043; 82570

== ENCOUNTER 2022-08-12 08:13 | Day surgery (SDC) | payer OTHER, SELFPAY ==
--- NOTE | 2022-08-12 | PATH_ITS ---
[facility] Accession Number: [id number] No. of containers..01 Tissue . 01 Material submitted: . colon - SIGMOID POLYP . 01 Diagnosis: Sigmoid Colon Polyp: Hyperplastic polyp. MRV 08/18/2022 1238 Local . 01 Electronically signed: . Mike Valdes MD, PhD, Pathologist NPI- [id number] . 01 Gross description: . SIGMOID POLYP: Received in formalin is 1 fragment(s) of lester, soft tissue measuring 0.5 x 0.4 x 0.3 cm submitted entirely in 1 cassette(s) /CONNIE 08/16/2022 1605 Local . 01 Pathologist provided ICD-10: K63.5 . 01 CPT . 408017 Performed at: 01 [facility] [address] [place] [id number] MD Shar Johnston MD Phone: [phone]
[2022-08-12 08:31] VITALS: BP 191/102; PULSE 75; RESP 16; TEMP 36.4; O2SAT 97; BMI 45.3
--- NOTE | 2022-08-12 09:13 | PM.HP.1 ---
History of Present Illness History of Present Illness Date Patient Seen: 08/12/22 Time Patient Seen: 09:13 Chief complaint: SDC Narrative: Brenton is a 62-year-old man here for colonoscopy. His last 1 was 10 years ago and was normal. No known family history of colon cancer. Patient History Medical History Benign essential hypertension Hypothyroidism Painless hematuria Type 2 diabetes mellitus Family & Social History Social History: household members none Tobacco & Substance use: Smoking Status Never smoker alcohol intake never Substance Use Type does not use Meds Home Medications and Allergies Home Medications Medication Instructions Recorded Confirmed Type Glucose: Test Strips strip BID ##100 05/20/16 06/15/22 Rx omeprazole 20 mg capsule,delayed See Rx Instructions .Route 11/25/21 08/12/22 Rx release .COMPLEX #90 caps lisinopril 20 mg tablet 20 mg PO DAILY #90 tabs 12/28/21 08/12/22 Rx levothyroxine 75 mcg tablet 75 mcg PO QDAY@0600 #90 tabs 02/15/22 08/12/22 Rx (Synthroid) glipizide 10 mg tablet, extended 10 mg PO DAILY #90 tabs 06/15/22 08/12/22 Rx release 24 hr metformin 1,000 mg tablet 1,000 mg PO BIDCC #180 tabs 06/22/22 08/12/22 Rx hydrochlorothiazide 25 mg tablet 25 mg PO DAILY #90 tabs 06/29/22 08/12/22 Rx Allergies Allergy/AdvReac Type Severity Reaction Status Date / Time Aztdjni-IRS-WjV Reductase Allergy Intermediate memory Verified 08/12/22 08:27 Inhibitor issues [Plqesui-Ahs-Sks Reductase Inhibitor] carvedilol AdvReac Intermediate Weight Gain Verified 08/12/22 08:27 pneumonia vaccine Allergy Unknown severe Uncoded 06/15/22 08:03 itching and swelling in left arm Exam Vital Signs (past 8 hours): - 08/12/22 08:31 Temperature 97.6 F Pulse Rate 75 Respiratory Rate 16 Blood Pressure 191/102 H Pulse Oximetry 97 Oxygen Delivery Method Room Air Oxygen Delivery Method Room Air Const General: No acute distress Resp Effort & Inspection: normal respiratory effort Assessment & Plan Assessment and plan (1) Colon cancer screening: Status: Acute Plan We reviewed the risks and benefits of colonoscopy and he would like to proceed. Time Spent With Patient Critical Care time: I spent a total of [] minutes of critical care time on this patient's care today; this time is exclusive of procedural time.
--- NOTE | 2022-08-12 09:38 | P.HP_ITS ---
History of Present Illness History of Present Illness Chief complaint: [facility] [place] Narrative: Brenton is a 62-year-old man here for colonoscopy. His last 1 was 10 years ago and was normal. No known family history of colon cancer. Patient History Medical History Benign essential hypertension Hypothyroidism Painless hematuria Type 2 diabetes mellitus Family & Social History Social History: household members none Tobacco & Substance use: Smoking Status Never smoker alcohol intake never Substance Use Type does not use Meds Home Medications and Allergies Home Medications Medication Instructions Recorded Confirmed Type Glucose: Test Strips strip BID ##100 05/20/16 06/15/22 Rx omeprazole 20 mg capsule,delayed See Rx Instructions .Route 11/25/21 08/12/22 Rx release .COMPLEX #90 caps lisinopril 20 mg tablet 20 mg PO DAILY #90 tabs 12/28/21 08/12/22 Rx levothyroxine 75 mcg tablet 75 mcg PO QDAY@0600 #90 tabs 02/15/22 08/12/22 Rx (Synthroid) glipizide 10 mg tablet, extended 10 mg PO DAILY #90 tabs 06/15/22 08/12/22 Rx release 24 hr metformin 1,000 mg tablet 1,000 mg PO BIDCC #180 tabs 06/22/22 08/12/22 Rx hydrochlorothiazide 25 mg tablet 25 mg PO DAILY #90 tabs 06/29/22 08/12/22 Rx Allergies Allergy/AdvReac Type Severity Reaction Status Date / Time Yzerqau-GBV-CcZ Reductase Allergy Intermediate memory Verified 08/12/22 08:27 Inhibitor issues [Oddhlxu-Jeq-Ffb Reductase Inhibitor] carvedilol AdvReac Intermediate Weight Gain Verified 08/12/22 08:27 pneumonia vaccine Allergy Unknown severe Uncoded 06/15/22 08:03 itching and swelling in left arm Exam Vital Signs (past 8 hours): - 08/12/22 08:31 Temperature 97.6 F Pulse Rate 75 Respiratory Rate 16 Blood Pressure 191/102 H Pulse Oximetry 97 Oxygen Delivery Method Room Air Oxygen Delivery Method Room Air Assessment & Plan Time Spent With Patient Critical Care time: I spent a total of [] minutes of critical care time on this patient's care today; this time is exclusive of procedural time.
[2022-08-12 10:11] VITALS: BP 113/74; PULSE 80; RESP 20; TEMP 36.2; O2SAT 95
--- NOTE | 2022-08-12 10:13 | PM.OP.COLON ---
Operative Date/Time/Diagnoses Date of procedure: 08/12/22 Time of procedure: 10:13 Pre-op diagnosis: Colon cancer screening Post-op diagnosis: same Procedure & Clinicians Study performed: Colonoscopy Same procedure as scheduled: Yes Surgeon: Reggie Abbasi Procedure Notes Procedure in detail: Surgeon: Reggie Abbasi MD Anesthesia: [facility] PARENT AIDE Procedure: The patient was brought to the endoscopy suite, placed in left lateral decubitus position. The patient was connected to monitoring devices. A time-out was performed. Sedation was administered. Once the patient was adequately sedated, a digital rectal exam was performed and was normal. The scope was then inserted and advanced to the cecum where the appendiceal orifice was identified and photographed. The scope was then slowly withdrawn over greater than 6 minutes. The mucosa was thoroughly inspected. There was 1 small polyp, roughly 4 mm, in the sigmoid colon removed with a cold snare. The scope was retroflexed in the rectum. No other abnormalities were seen. The scope was straightened and removed. The patient was awakened and brought to recovery. Scope withdrawal time: 11 minutes Sedation time: 13 minutes EBL: 2 mL Findings: 4 mm polyp in the sigmoid colon Post-procedure Disposition: PACU
[2022-08-12 10:14] VITALS: PULSE 92; RESP 17; O2SAT 95
[2022-08-12 10:24] VITALS: BP 111/76; PULSE 73; RESP 11; TEMP 36.2; O2SAT 95
== END 2022-08-12 10:45 | disposition home or self-care (01) ==
PROVIDERS: PCP Student in an Organized Health Care Education/Training Program; Referring Provider Surgery; Visit Provider Surgery
PROC: 0DJD8ZZ Inspection of Lower Intestinal Tract, Via Natural or Artificial Opening Endoscopic (ICD-10-PCS; CPT 45378; principal; 2022-08-12 09:15)
DX: Z12.11 Encounter for screening for malignant neoplasm of colon (principal); K63.5 Polyp of colon
CPT/HCPCS: 45385; J2704

== ENCOUNTER → 2022-09-16 08:22 | Outpatient (CLI) | payer OTHER, SELFPAY ==
[2022-09-16 09:52] LABS: BUN Creatinine Ratio 17.5 (6-22); Blood Urea Nitrogen 14 mg/dL (9-20); Calcium 9.1 mg/dL (8.4-10.2); Carbon Dioxide 31 mmol/L (22-32); Chloride 94 mmol/L (98-107); Creatinine Urine Random 95.3 mg/dL; Estimated Glomerular Filt Rate > 60 mL/min (>60); Glucose 190 mg/dL (80-110); HEMOLYSIS < 15 (0-50); Potassium 3.9 mmol/L (3.4-5.1); Sodium 135 mmol/L (137-145)
[2022-09-16 09:56] LABS: Microalbumi Creatinin Ratio Ur 121.7 ug/mg CR (<30); Microalbumin Urine Random 11.6 mg/dL (0-1.6)
[2022-09-17 09:38] LABS: Labcorp Hemoglobin (Hb) A1c 8.7 % (4.8-5.6)
== END ==
PROVIDERS: PCP Student in an Organized Health Care Education/Training Program; Referring Provider Student in an Organized Health Care Education/Training Program; Visit Provider Student in an Organized Health Care Education/Training Program
DX: E11.29 Type 2 diabetes mellitus with other diabetic kidney complication (principal); R80.9 Proteinuria, unspecified
CPT/HCPCS: 36415; 80048; 82043; 82570; 83036

== ENCOUNTER → 2023-01-08 08:27 | Outpatient (CLI) | payer OTHER, SELFPAY ==
[2023-01-08 09:06] LABS: Creatinine Urine Random 224.5 mg/dL
[2023-01-08 09:10] LABS: Microalbumi Creatinin Ratio Ur 69.4 ug/mg CR (<30); Microalbumin Urine Random 15.6 mg/dL (0-1.6)
[2023-01-08 09:22] LABS: BUN Creatinine Ratio 23.9 (6-22); Blood Urea Nitrogen 22 mg/dL (9-20); Calcium 9.4 mg/dL (8.4-10.2); Carbon Dioxide 27 mmol/L (22-32); Chloride 100 mmol/L (98-107); Cholesterol 250 mg/dL (140-199); Estimated Glomerular Filt Rate > 60 mL/min (>60); Glucose 126 mg/dL (80-110); HDL Cholesterol 42 mg/dL (40-60); HEMOLYSIS < 15 (0-50); LDL Cholesterol Calculated 167 mg/dL (<100); Potassium 4.2 mmol/L (3.4-5.1); Sodium 138 mmol/L (137-145); Triglycerides 207 mg/dL (35-150)
[2023-01-08 09:50] LABS: Thyroid Stimulating Hormone 2.93 uIU/mL (0.47-4.68)
== END ==
PROVIDERS: PCP Student in an Organized Health Care Education/Training Program; Referring Provider Pediatrics; Visit Provider Pediatrics
DX: E11.9 Type 2 diabetes mellitus without complications (principal); R80.9 Proteinuria, unspecified; E11.69 Type 2 diabetes mellitus with other specified complication; E78.5 Hyperlipidemia, unspecified; E03.9 Hypothyroidism, unspecified
CPT/HCPCS: 36415; 80048; 80061; 82043; 82570; 83036; 84443

== ENCOUNTER → 2023-01-21 14:48 | Outpatient (CLI) | payer OTHER, SELFPAY ==
--- NOTE | 2023-01-21 14:50 | DI.RAD.S_ITS ---
PROCEDURE: XR WRIST RT MIN 3V INDICATIONS: fall on outstretched hand, tender lateral dorsal carpal bone TECHNIQUE: 4 views of the wrist were acquired. COMPARISON: None. FINDINGS: Bones: Cortical irregularity involving base of radial styloid consistent with up to 1 mm diastasis and fracture line extending to radiocarpal joint space. No other fracture or dislocation. 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 Scaphoid view: Scaphoid is grossly intact. Soft tissues: No suspicious soft tissue calcifications. IMPRESSION: Acute minimally displaced fracture through base of radial styloid as above. Dictated by: Yared Bennett M.D. on 01/21/2023 at 15:19 Approved by: Yared Bennett M.D. on 01/21/2023 at 15:25
== END ==
PROVIDERS: PCP Pediatrics; Referring Provider Physician Assistant; Visit Provider Physician Assistant
DX: S52.514A Nondisplaced fracture of right radial styloid process, initial encounter for closed fracture (principal); M25.531 Pain in right wrist; W19.XXXA Unspecified fall, initial encounter
CPT/HCPCS: 73110

== ENCOUNTER 2023-04-16 09:51 | Emergency (ER) | payer OTHER, SELFPAY ==
[2023-04-16] VITALS (21 sets, daily range): BP systolic 128–196; BP diastolic 67–85; PULSE 64–101; RESP 16; TEMP 36.9–38.2; O2SAT 94–97; BMI 43.2
--- NOTE | 2023-04-16 10:02 | DI.RAD.S_ITS ---
PROCEDURE: XR CHEST 1V INDICATIONS: suspected sepsis TECHNIQUE: One view of the chest was acquired. COMPARISON: [facility], CR, XR CHEST 2V, 04/13/2022, 14:38. FINDINGS: Surgical changes and devices: None. Lungs and pleura: Lungs are clear. No pleural effusions or pneumothorax. Mediastinum: Mediastinal contours appear normal. Heart size is normal. Bones and chest wall: No suspicious bony lesions. Overlying soft tissues appear unremarkable. IMPRESSION: Portable chest within normal limits for age. Dictated by: Reinier Tobin M.D. on 04/16/2023 at 9:19 Approved by: Reinier Tobin M.D. on 04/16/2023 at 9:20
[2023-04-16 10:16] LABS: Add Manual Diff / Slide Review NO; Basophils Absolute Auto 0 /uL (0-100); Basophils Percent Auto 0.2 % (0-2); Eosinophils Absolute Auto 0 /uL (0-450); Hematocrit 41.8 % (41-53); Hemoglobin 14.3 g/dL (13.5-17.5); Lymphocytes Absolute Auto 500 /uL (1100-4500); Lymphocytes Percent Auto 3.4 % (25-40); Mean Corpuscular HGB Conc 34.2 % (30-36); Mean Corpuscular Hemoglobin 29.4 PG (26-34); Monocytes Absolute Auto 1100 /uL (0-900); Monocytes Percent Auto 7.1 % (3-14); Neutrophils Absolute Auto 13500 /uL (1500-7000); Neutrophils Percent Auto 89.3 % (50-75); Platelet Count 172 X10^3/uL (150-400); Red Blood Cell Count 4.86 X10^6/uL (4.5-5.9); Red Cell Distribution Width 13.9 % (11.6-14.8); White Blood Cell Count 15.1 X10^3/uL (4.5-11.0)
[2023-04-16] MEDS: ACETAMINOPHEN 325 MG TABLET 975 MG PO (10:18)
[2023-04-16] MEDS: SODIUM CHLORIDE 0.9% 1,000 ML 1000 ML IV (10:18)
[2023-04-16 10:21] LABS: INR 1.3 (0.9-1.3); Prothrombin Time 14.6 SECONDS (10.1-12.7)
[2023-04-16 10:23] LABS: PTT Partial Thromboplastin Tim 31 SECONDS (26-36)
[2023-04-16 10:25] LABS: Alanine Aminotransferase 24 IU/L (<50); Albumin 4.6 g/dL (3.5-5.0); Albumin Globulin Ratio 1.2 (1.0-2.8); Alkaline Phosphatase 60 U/L (38-126); Aspartate Aminotransferase 14 IU/L (17-59); BUN Creatinine Ratio 14.9 (6-22); Bilirubin Total 1.1 mg/dL (0.2-1.3); Blood Urea Nitrogen 26 mg/dL (9-20); Calcium 9.8 mg/dL (8.4-10.2); Carbon Dioxide 28 mmol/L (22-32); Chloride 90 mmol/L (98-107); Estimated Glomerular Filt Rate 44 mL/min (>60); Globulin 3.7 g/dL (1.7-4.1); Glucose 154 mg/dL (80-110); HEMOLYSIS < 15 (0-50); Lactate (Lactic Acid) 1.7 mmol/L (0.7-2.1); Lipase 63 U/L (23-300); Potassium 3.5 mmol/L (3.4-5.1); Sodium 130 mmol/L (137-145); Total Protein 8.3 g/dL (6.3-8.2)
[2023-04-16 10:41] LABS: Procalcitonin 1.35 ng/mL (<0.5)
[2023-04-16 10:43] LABS: Influenza A - CEPHEID Flu A NEGATIVE (NEGATIVE); Influenza B - CEPHEID Flu B NEGATIVE (NEGATIVE); Respiratory Syncytial Virus Negative (Negative)
[2023-04-16 10:45] LABS: COVID-19 CEPHEID 4-PLEX PCR Negative (Negative)
--- NOTE | 2023-04-16 11:18 | ED.FEVER ---
HPI - Fever General Chief Complaint: Fever Stated Complaint: Gall Bladder attack/ fever/ no energy Time Seen by Provider: 04/16/23 10:53 Source: patient Mode of arrival: Family Vehicle Limitations: no limitations History of Present Illness HPI Narrative: This is a 62-year-old male diabetic, hypertensive, hypothyroidism who presents with complaint of right-sided abdominal pain in the lower abdomen that started , he would nausea and vomiting that day by Tuesday it had resolved in his nausea and vomiting had resolved. He developed a fever today. Patient states he is not having any abdominal pain, no back or flank pain. He denies any cold cough congestion. No headache, no neck pain, does not have any nausea or vomiting at this time. States his appetite has been good. He denies any issues diarrhea or black or bloody stools. States he is not had a bowel movement since . Is passing gas. He states no black or bloody stools on . He denies any dysuria, urgency or frequency. He states side little bit of rash in his inner forearm but no other skin changes. Patient states it felt very similar to when he had a gallbladder attack 18 years ago. He does still have his gallbladder he also still has a appendix. He is never had kidney stones. States he never had any prior surgeries. States he has sensitivity to statins, no tobacco, alcohol or illicit. New primary care is Dr. Romero. Related Data Home Medications Medication Instructions Recorded Confirmed aspirin 81 mg tablet,delayed 81 mg PO DAILY 09/21/22 04/14/23 release Previous Rx's Medication Instructions Recorded Glucose: Test Strips strip BID ##100 05/20/16 omeprazole 20 mg capsule,delayed See Rx Instructions .Route 08/24/22 release .COMPLEX #90 caps lisinopril 20 mg tablet 20 mg PO DAILY #90 tabs 09/23/22 metformin 1,000 mg tablet 1,000 mg PO BIDCC #180 tabs 01/07/23 hydrochlorothiazide 25 mg tablet 25 mg PO DAILY #90 tabs 02/03/23 levothyroxine 75 mcg tablet 75 mcg PO QDAY@0600 #90 tabs 03/01/23 (Synthroid) alprazolam 0.5 mg tablet 0.5 mg PO .prn #10 tabs 04/14/23 tirzepatide 5 mg/0.5 mL 5 mg (0.5 mL) SUBCUT QWEEK #2 mL 04/14/23 subcutaneous pen injector (Juana) Allergies Allergy/AdvReac Type Severity Reaction Status Date / Time Xlxmhxl-QPW-SpP Reductase Allergy Intermediate memory Verified 04/16/23 09:59 Inhibitor issues [Xsjxytb-Xiz-Yaq Reductase Inhibitor] carvedilol AdvReac Intermediate Weight Gain Verified 04/16/23 09:59 pneumonia vaccine Allergy Unknown severe Uncoded 04/16/23 09:59 itching and swelling in left arm Review of Systems Review of Systems ROS Unobtainable: All systems reviewed & are unremarkable except as noted in HPI and below Patient History Medical History Type 2 diabetes mellitus Painless hematuria Benign essential hypertension Hypothyroidism Social History household members: none Smoking Status: Never smoker alcohol intake: never Smoking Status: Never smoker Substance Use Type: marijuana Exam Narrative Exam Narrative: GEN: Obese male, alert and oriented x 3, patient appears to be in mild distress. Patient is diaphoretic and warm to the touch HEENT: Atraumatic, pupils are equal round reactive to light, extraocular movements are intact, nares are clear, there is no conjunctival pallor. Throat is clear without any exudates, erythema, tonsillar enlargement or uvular deviation HEART: Regular rate and rhythm without murmur, clicks, rubs. Pulses are equal in upper and lower extremities LUNGS:Lungs clear to auscultation, no wheezes, rales, crackles, chest moves symmetrically, no tachypnea accessory muscle use. No cough on examination. ABD:bowel sounds normal, soft, non-tender, no guarding, rebound, rigidity, no masses noted, no hepatosplenomegaly :No CVA tenderness MSCL: Non-tender, no muscle atrophy, muscles strength 5/5 upper and lower extremities, full range of motion, normal gait NEURO:CN 2-12 intact SKIN: No obvious rash, erythema, no petechiae, no ecchymosis or other skin changes noted. Initial Vital Signs Initial Vital Signs: Vital Signs Temperature 100.7 F H 04/16/23 09:57 Pulse Rate 100 H 04/16/23 09:57 Respiratory Rate 16 04/16/23 09:57 Blood Pressure 196/85 H 04/16/23 09:57 Pulse Oximetry 97 04/16/23 09:57 Oxygen Delivery Method Room Air 04/16/23 09:57 Course Orders Ordered: ED Orders 04/16/23 10:00 Complete Blood Count AUTO DIFF Stat Comprehensive Metabolic Panel Stat Covid-19 + FLU A/B + RSV - PCR Stat Lactate (Lactic Acid) Stat Lipase Stat PTT Partial Thromboplastin Shayan Stat Procalcitonin Stat Prothrombin Time INR Stat 04/16/23 10:02 XR chest 1V Stat RT Consult Eval and Treat NOW 04/16/23 10:20 Blood Culture Stat 04/16/23 10:32 EKG-12 Lead Stat 04/16/23 11:34 Urine Culture Stat Urine Microscopic Stat 04/16/23 12:02 CT abdomen pelvis w con Stat Discontinued Medications Acetaminophen (Acetaminophen 325 Mg Tablet) 975 mg PO NOW ONE Stop: 04/16/23 10:04 Last Admin: 04/16/23 10:18 Dose: 975 mg Documented By: YOLANDE Sodium Chloride (Normal Saline 0.9%) 1,000 mls @ 1,000 mls/hr IV BOLUS ONE Stop: 04/16/23 11:01 Last Infusion: 04/16/23 13:25 Dose: Infused Documented By: Admin: 04/16/23 10:18 Dose: 1,000 mls/hr Documented By: YOLANDE Ceftriaxone Sodium 2,000 mg/ (Sodium Chloride) 100 mls @ 200 mls/hr IV NOW ONE Stop: 04/16/23 12:03 Last Infusion: 04/16/23 13:07 Dose: Infused Documented By: Admin: 04/16/23 12:13 Dose: 200 mls/hr Documented By: AMGurjit Sodium Chloride (Normal Saline 0.9%) 1,000 mls @ 150 mls/hr IV CONT RICKY Last Infusion: 04/16/23 16:47 Dose: Infused Documented By: Infusion: 04/16/23 16:46 Dose: 150 mls/hr Documented By: Admin: 04/16/23 13:26 Dose: 150 mls/hr Documented By: TEJINDER Ibuprofen (Ibuprofen 400 Mg Tablet) 600 mg PO NOW ONE Stop: 04/16/23 11:30 Last Admin: 04/16/23 11:33 Dose: 600 mg Documented By: AMV Ondansetron HCl (Ondansetron 4 Mg/2 Ml Inj) 4 mg IV NOW PRN PRN Reason: Nausea And Vomiting Ondansetron HCl (Ondansetron 4 Mg Odt) 4 mg SL NOW PRN PRN Reason: Nausea And Vomiting Vital Signs Vital signs: Vital Signs - 8 hr 04/16/23 10:49 04/16/23 11:00 04/16/23 11:00 Temperature Pulse Rate 92 H 93 H Blood Pressure 183/79 H Pulse Oximetry 95 95 04/16/23 11:29 04/16/23 11:31 04/16/23 11:32 Temperature 100.8 F H Pulse Rate 101 H 97 H Blood Pressure Pulse Oximetry 94 94 04/16/23 11:32 04/16/23 11:33 04/16/23 12:00 Temperature 100.8 F H Pulse Rate 80 Blood Pressure 184/85 H Pulse Oximetry 94 04/16/23 12:01 04/16/23 12:01 04/16/23 12:17 Temperature 98.5 F 98.5 F Pulse Rate 83 Blood Pressure 156/73 H Pulse Oximetry 95 04/16/23 12:30 04/16/23 13:00 04/16/23 13:01 Temperature Pulse Rate 79 75 77 Blood Pressure Pulse Oximetry 95 95 95 04/16/23 13:01 04/16/23 13:30 04/16/23 13:30 Temperature Pulse Rate 73 Blood Pressure 141/71 H 143/76 H Pulse Oximetry 95 04/16/23 14:00 04/16/23 14:00 04/16/23 14:30 Temperature Pulse Rate 69 Blood Pressure 136/67 138/73 Pulse Oximetry 94 04/16/23 14:30 04/16/23 15:00 04/16/23 15:00 Temperature Pulse Rate 69 64 Blood Pressure 128/70 Pulse Oximetry 95 96 04/16/23 15:30 04/16/23 15:30 04/16/23 16:00 Temperature Pulse Rate 66 Blood Pressure 147/70 H 131/70 Pulse Oximetry 94 04/16/23 16:00 04/16/23 16:30 04/16/23 16:30 Temperature Pulse Rate 65 65 Blood Pressure 149/70 H Pulse Oximetry 95 95 MDM - Fever Lab Data 04/16/23 10:00 04/16/23 10:00 Labs: Lab Results 04/16/23 04/16/23 Range/Units 10:00 11:34 WBC 15.1 H (4.5-11.0) X10^3/uL RBC 4.86 (4.5-5.9) X10^6/uL Hgb 14.3 (13.5-17.5) g/dL Hct 41.8 (41-53) % MCV 86.0 (80-100) fL MCH 29.4 (26-34) PG MCHC 34.2 (30-36) % RDW 13.9 (11.6-14.8) % Plt Count 172 (150-400) X10^3/uL Neut % (Auto) 89.3 H (50-75) % Lymph % (Auto) 3.4 L (25-40) % Greer % (Auto) 7.1 (3-14) % Eos % (Auto) 0.0 L (2-4) % Baso % (Auto) 0.2 (0-2) % Neut # (Auto) 91056 H (2819-6534) /uL Lymph # (Auto) 500 L (4372-9989) /uL Greer # (Auto) 1100 H (0-900) /uL Eos # (Auto) 0 (0-450) /uL Baso # (Auto) 0 (0-100) /uL PT 14.6 H (10.1-12.7) SECONDS INR 1.3 (0.9-1.3) APTT 31 (26-36) SECONDS Sodium 130 L (137-145) mmol/L Potassium 3.5 (3.4-5.1) mmol/L Chloride 90 L (98-107) mmol/L Carbon Dioxide 28 (22-32) mmol/L BUN 26 H (9-20) mg/dL Creatinine 1.74 H (0.66-1.25) mg/dL Estimated GFR 44 L (>60) mL/min BUN/Creatinine Ratio 14.9 (6-22) Glucose 154 H (80-110) mg/dL Lactate 1.7 (0.7-2.1) mmol/L Calcium 9.8 (8.4-10.2) mg/dL Total Bilirubin 1.1 (0.2-1.3) mg/dL AST 14 L (17-59) IU/L ALT 24 (<50) IU/L Alkaline Phosphatase 60 (38-126) U/L Total Protein 8.3 H (6.3-8.2) g/dL Albumin 4.6 (3.5-5.0) g/dL Globulin 3.7 (1.7-4.1) g/dL Albumin/Globulin Ratio 1.2 (1.0-2.8) Lipase 63 (23-300) U/L Procalcitonin 1.35 H (<0.5) ng/mL Urine RBC 1-5/hpf (0-5/HPF) Urine WBC 30-100/hpf H (0-5/HPF) Ur Squamous Epith Cells None seen (0-5/HPF) Amorphous Sediment 1+ Urine Bacteria Few (2-10) H (None) Ur Culture Indicated? Specimen cultured SARS-CoV-2 (PCR) Negative (Negative) Influenza A (RT-PCR) Flu a negative (NEGATIVE) Influenza B (RT-PCR) Flu b negative (NEGATIVE) RSV (PCR) Negative (Negative) Urine Dip Bedside Urine Glucose Negative Bedside Urine Bilirubin - Negative Bedside Urine Ketone ++ 40 Urine Specific King[place] 1.025 Bedside Urine Occult Blood ++ Bedside Urine pH 6.0 Bedside Urine Protein + 30 Bedside Urine Urobilinogen - Negative Bedside Urine Nitrite - Negative Bedside Urine Leukocytes ++ [address] scan - abdomen/pelvis: Radiologist's Impression: [place] [address] CT Scan Report Signed Patient: Sebastián Stuart MR#: [id number] : 1960 Acct:[id number] Age/Sex: 62 / M Date of Service: 04/16/23 Loc: ED Accession Number: [id number] Procedure: CT abdomen pelvis w con Ordering Provider: Margaret Marinelli D.O. PROCEDURE: CT ABDOMEN PELVIS W CON INDICATIONS: RLQ pain, +fever, paty, TECHNIQUE: Multi axial type sequencing CT imaging of the abdomen and pelvis without IV contrast. For radiation dose reduction, the following was used: automated exposure control, adjustment of mA and/or kV according to patient size. COMPARISON: [facility], CT, CT ABDOMEN PELVIS W CON, 09/17/2021, 2:59. FINDINGS: Image quality: Excellent. Lung bases: Lung bases are clear. Heart size is normal. Urinary system: Within the right proximal ureter there is a 9 x 13 millimeter stone with a Hounsfield density of 1154. There is mild proximal hydronephrosis with right perinephric fat stranding. There is an additional 2 millimeter stone within the right inferior pole. No hydronephrosis or stone within the left kidney. Bilateral cystic changes of the kidneys. There is diffuse wall thickening of the bladder in a decompressed state. There is small foci of air within the bladder. Solid organs: Liver is normal in size and enhancement. Gallbladder numerous calcified gallstones gallbladder. Biliary system is non dilated. Pancreas enhances normally. Spleen is normal in size and enhancement. No adrenal nodules. Peritoneum and bowel: Bowel loops demonstrate normal wall thickness and caliber. No free fluid or air. Mildly prominent appendix. Trace amount flow Misael changes within the right lower pelvis is likely sequela from perinephric fat stranding and gravity dependent changes however these inflammatory changes do approximate the appendix. Nodes and vessels: No retroperitoneal or mesenteric adenopathy by size criteria. Aorta and inferior vena cava are normal in size. Abdominal wall: No ventral hernias. Pelvis: No pathologic free pelvic fluid. No inguinal hernias or adenopathy. Bones: No suspicious bony lesions. No vertebral body compression fractures. IMPRESSION: 1. Hydronephrosis due to right proximal ureteral stone measuring 13 millimeters. 2. Bladder wall thickening a small foci of air, correlate for chronic cystitis and instrumentation. 3. A mildly prominent appendix with inflammatory changes likely sequela of right-sided hydronephrosis however cannot exclude concurrent acute appendicitis, recommend clinical correlation for signs of appendicitis. 4. Cholelithiasis without evidence of acute cholecystitis. Dr. Kaye: Discussed the above findings with the ordering provider Margaret Marinelli and discussed the findings over the phone at 10:07 p.m. [place] time. Dictated by: Reinier Tobin M.D. on 04/16/2023 at 11:51 Approved by: Reinier Tobin M.D. on 04/16/2023 at 12:08 ECG Data Attestation: I personally reviewed and interpreted this ECG as follows: Prior ECG tracings: available for review Interpretation: Sinus rhythm rate of 93 OR 188 QRS of 106 QTC of 427. No acute ST elevation noted left ventricular hypertrophy. T-waves inverted in 1 and aVL. Patient has prior EKG from 09/17/2021 did not show T-wave inverted in 1 aVL but otherwise appears similar. MDM Narrative Medical decision making narrative: 62-year-old male with fever, tachycardia, hypertension normal O2 sat respiratory rate. Patient had abdominal pain on the right side more lower than upper although he states felt similar to when he had gallstones in the past. Workup shows leukocytosis of 15, positive procalcitonin lactate was negative at 1.7. Hemoglobin is appropriate 14 platelets are 172 creatinine appears elevated 1.74 in December he had a creatinine of 0.92. Sodium is 130 was 138 on December 2022. Chloride 90 normal potassium, BUN 26, glucose is 154, LFTs are appropriate, lipase is negative. Urine shows leukocyte esterase of 125 positive for occult blood protein but no nitrates positive for ketones patient does have 1-5 RBCs with 30-100 wbc's few bacteria. Patient appears to have likely UTI, he does not have any flank pain but did have pain 2 days ago with the elevation in his creatinine there is concern for possible kidney stone. But patient's tenderness was also right lower quadrant so CT abdomen pelvis with contrast was obtained. Patient received a L of fluids initially, Tylenol for fever made minimal difference so was given ibuprofen tachycardia did improve continue with gentle hydration. Patient was given a dose of Rocephin. Patient has right 13 mm stone, hydro, inflammatory changes does have some inflammation around the appendix. Suspect the inflammation which Radiology notes tracks up to the kidney is likely secondary. Patient is nontender in that area. Spoke with Dr. Fernando who is on-call for Urology for UTI they have no beds she agrees with Rocephin at this time and states to call back if we can not find placement any were else but they currently do not have any availability. Spoke with Dr. Monk [facility], Urology would accept and see patient for lithotripsy and treatment when asked for that we talked medicine. [facility] does not have any beds available. Spoke with Dr. Staley, urology at [facility] in [place] accepts to take would take to the OR for stent placement. Agrees with plan with Rocephin discussed patient's pressure so far has tolerated well but is septic with a obstructing stone with acute kidney injury. Did note there were some inflammatory changes around the appendix but likely more localized inflammation than true appendicitis as patient is nontender and clearly has a infection in his urine with a obstructed stone. Spoke with [facility] Herrera who accepts for transfer to the hospitalist service. Critical Care Time Critical Care Time Critical Care Time: Yes Total Critical Care Time: 45 Attestation: The high probability of a clinically significant, sudden or life threatening deterioration of the [uro, cardiac] system(s) required my full and direct attention, intervention and personal management. The aggregate critical care time was [] minutes. This time is in addition to time spent performing reported procedures but includes the following: [x] Data Review and interpretation [x] Patient assessment and monitoring of vital signs [x] Documentation [x] Medication orders and management Discharge Plan Departure Patient Disposition: [facility] Clinical Impression: Sepsis, Kidney stone on right side, Acute kidney injury Prescriptions: No Action alprazolam 0.5 mg tablet 0.5 mg PO .prn Qty: 10 0RF Mounjaro 5 mg/0.5 mL pen injector 5 mg SUBCUT QWEEK Qty: 2 5RF Glucose: Test Strips BID Qty: 100 11RF omeprazole 20 mg capsule,delayed release(DR/EC) See Rx Instructions .ROUTE .COMPLEX Qty: 90 2RF Dose Instruction: TAKE 1 CAPSULE BY MOUTH DAILY Rx Instructions: TAKE 1 CAPSULE BY MOUTH DAILY lisinopril 20 mg tablet 20 mg PO DAILY Qty: 90 3RF metformin 1,000 mg tablet 1,000 mg PO BIDCC Qty: 180 1RF Hold Instructions: Needs labs hydrochlorothiazide 25 mg tablet 25 mg PO DAILY Qty: 90 1RF Hold Instructions: needs labs levothyroxine [Synthroid] 75 mcg tablet 75 mcg PO QDAY@0600 Qty: 90 0RF aspirin 81 mg tablet,delayed release (DR/EC) 81 mg PO DAILY Referrals: Deborah Aguilar MD [Primary Care Provider] -
[2023-04-16] MEDS: IBUPROFEN 400 MG TABLET 600 MG PO (11:33)
[2023-04-16 11:54] LABS: Bacteria Urine Few (2-10); RBC Urine 1-5/HPF (0-5/HPF); Squamous Epithelial Cell Urine None Seen (0-5/HPF); WBC Urine 30-100/HPF (0-5/HPF)
[2023-04-16 11:55] LABS: Amorphous Sediment Urine 1+; Culture Indicated Urine Specimen Cultured
--- NOTE | 2023-04-16 12:02 | DI.CT.S_ITS ---
PROCEDURE: CT ABDOMEN PELVIS W CON INDICATIONS: RLQ pain, +fever, paty, TECHNIQUE: Multi axial type sequencing CT imaging of the abdomen and pelvis without IV contrast. For radiation dose reduction, the following was used: automated exposure control, adjustment of mA and/or kV according to patient size. COMPARISON: [facility], CT, CT ABDOMEN PELVIS W CON, 09/17/2021, 2:59. FINDINGS: Image quality: Excellent. Lung bases: Lung bases are clear. Heart size is normal. Urinary system: Within the right proximal ureter there is a 9 x 13 millimeter stone with a Hounsfield density of 1154. There is mild proximal hydronephrosis with right perinephric fat stranding. There is an additional 2 millimeter stone within the right inferior pole. No hydronephrosis or stone within the left kidney. Bilateral cystic changes of the kidneys. There is diffuse wall thickening of the bladder in a decompressed state. There is small foci of air within the bladder. Solid organs: Liver is normal in size and enhancement. Gallbladder numerous calcified gallstones gallbladder. Biliary system is non dilated. Pancreas enhances normally. Spleen is normal in size and enhancement. No adrenal nodules. Peritoneum and bowel: Bowel loops demonstrate normal wall thickness and caliber. No free fluid or air. Mildly prominent appendix. Trace amount flow Misael changes within the right lower pelvis is likely sequela from perinephric fat stranding and gravity dependent changes however these inflammatory changes do approximate the appendix. Nodes and vessels: No retroperitoneal or mesenteric adenopathy by size criteria. Aorta and inferior vena cava are normal in size. Abdominal wall: No ventral hernias. Pelvis: No pathologic free pelvic fluid. No inguinal hernias or adenopathy. Bones: No suspicious bony lesions. No vertebral body compression fractures. IMPRESSION: 1. Hydronephrosis due to right proximal ureteral stone measuring 13 millimeters. 2. Bladder wall thickening a small foci of air, correlate for chronic cystitis and instrumentation. 3. A mildly prominent appendix with inflammatory changes likely sequela of right-sided hydronephrosis however cannot exclude concurrent acute appendicitis, recommend clinical correlation for signs of appendicitis. 4. Cholelithiasis without evidence of acute cholecystitis. Dr. Kaye: Discussed the above findings with the ordering provider Margaret Marinelli and discussed the findings over the phone at 10:07 p.m. [place] time. Dictated by: Reinier Tobin M.D. on 04/16/2023 at 11:51 Approved by: Reinier Tobin M.D. on 04/16/2023 at 12:08
[2023-04-16] MEDS: cefTRIAXone 2,000 MG in SODIUM CHLORIDE 0.9% 100 ML 200 MG IV (12:13)
[2023-04-16] MEDS: SODIUM CHLORIDE 0.9% 1,000 ML 150 ML IV (13:26)
== END 2023-04-16 16:41 | disposition short-term general hospital (02) ==
PROVIDERS: Emergency Provider Emergency Medicine; PCP Student in an Organized Health Care Education/Training Program
DX: N20.0 Calculus of kidney (principal); N17.9 Acute kidney failure, unspecified; A41.9 Sepsis, unspecified organism; R11.2 Nausea with vomiting, unspecified; Z79.899 Other long term (current) drug therapy; Z20.822 Contact with and (suspected) exposure to COVID-19
CPT/HCPCS: 0241U; 36415; 71045; 74177; 80053; 81003; 81015; 83605; 83690; 84145; 85025; 85610; 85730; 87040; 87077; 87086; 93005; 93010; 96361; 96365; 99284; J0696; Q9967

== ENCOUNTER → 2023-04-22 15:23 | Outpatient (CLI) | payer OTHER, SELFPAY ==
--- NOTE | 2023-04-22 15:28 | DI.RAD.S_ITS ---
PROCEDURE: XR KUB INDICATIONS: KUB TECHNIQUE: One view of the abdomen acquired. COMPARISON: [facility], CT, CT ABDOMEN PELVIS W CON, 04/16/2023, 12:13. FINDINGS: Surgical changes and devices: A double pigtail right ureteral catheter is present in expected positions at the renal pelvis and bladder. A previously identified proximal ureteral dense calculus has been displaced cephalad into the expected position of the mid to the lower renal collecting system on the right.. Bowel: Bowel gas pattern is normal. Soft tissues: No new suspicious abdominal calcifications, and again noted is dependent layering of numerous small calculi within the gallbladder lumen. Visualized solid organ contours appear normal in size. Bones: No suspicious bony lesions. IMPRESSION: Successful superior displacement of a proximal right ureteral stone into the collecting system of the right kidney. Double pigtail right ureteral catheter normally positioned both superiorly and inferiorly. Numerous layering calcifications within the gallbladder lumen. Dictated by: Robert Gibbons M.D. on 04/22/2023 at 16:42 Approved by: Robert Gibbons M.D. on 04/22/2023 at 16:44
== END ==
PROVIDERS: PCP Student in an Organized Health Care Education/Training Program; Referring Provider Urology; Visit Provider Urology
DX: N20.0 Calculus of kidney (principal); Z96.0 Presence of urogenital implants
CPT/HCPCS: 74018

== ENCOUNTER → 2023-05-20 13:39 | Outpatient (CLI) | payer OTHER, SELFPAY | PROVIDERS: PCP Student in an Organized Health Care Education/Training Program; Visit Provider Nurse Practitioner Family | DX: R30.0 Dysuria (principal); R50.9 Fever, unspecified | CPT/HCPCS: 87077; 87086 ==

== ENCOUNTER → 2024-01-26 14:39 | Outpatient (CLI) | payer OTHER, SELFPAY ==
[2024-01-26 15:13] LABS: Add Manual Diff / Slide Review NO; Basophils Absolute Auto 0 /uL (0-100); Basophils Percent Auto 0.4 % (0-2); Eosinophils Absolute Auto 100 /uL (0-450); Eosinophils Percent Auto 1.5 % (2-4); Hematocrit 39.2 % (41-53); Hemoglobin 13.3 g/dL (13.5-17.5); Lymphocytes Absolute Auto 1800 /uL (1100-4500); Lymphocytes Percent Auto 19.1 % (25-40); Mean Corpuscular HGB Conc 33.9 % (30-36); Mean Corpuscular Hemoglobin 30.1 PG (26-34); Mean Corpuscular Volume 88.8 fL (80-100); Monocytes Absolute Auto 700 /uL (0-900); Monocytes Percent Auto 7.6 % (3-14); Neutrophils Absolute Auto 6900 /uL (1500-7000); Neutrophils Percent Auto 71.4 % (50-75); Platelet Count 235 X10^3/uL (150-400); Red Blood Cell Count 4.41 X10^6/uL (4.5-5.9); Red Cell Distribution Width 14.2 % (11.6-14.8); White Blood Cell Count 9.6 X10^3/uL (4.5-11.0)
[2024-01-26 15:27] LABS: Hemoglobin A1C% w Est Avg Glu 5.9 % (4.0-6.0)
[2024-01-26 15:34] LABS: Alanine Aminotransferase 26 IU/L (<50); Albumin 4.8 g/dL (3.5-5.0); Albumin Globulin Ratio 1.7 (1.0-2.8); Alkaline Phosphatase 64 U/L (38-126); Aspartate Aminotransferase 18 IU/L (17-59); BUN Creatinine Ratio 15.4 (6-22); Bilirubin Total 0.9 mg/dL (0.2-1.3); Blood Urea Nitrogen 16 mg/dL (9-20); Calcium 9.6 mg/dL (8.4-10.2); Carbon Dioxide 25 mmol/L (22-32); Chloride 103 mmol/L (98-107); Cholesterol 238 mg/dL (140-199); Estimated Glomerular Filt Rate > 60 mL/min (>60); Globulin 2.9 g/dL (1.7-4.1); Glucose 83 mg/dL (80-110); HDL Cholesterol 53 mg/dL (40-60); HEMOLYSIS < 15 (0-50); LDL Cholesterol Calculated 170 mg/dL (<100); Potassium 4.2 mmol/L (3.4-5.1); Sodium 139 mmol/L (137-145); Total Protein 7.7 g/dL (6.3-8.2); Triglycerides 77 mg/dL (35-150)
[2024-01-26 16:01] LABS: TSH w/ Reflex to FT4 1.38 uIU/mL (0.47-4.68)
[2024-01-26 17:56] LABS: Creatinine Urine Random 244.31 mg/dL
[2024-01-26 18:13] LABS: Microalbumin Urine Random 62.7 mg/dL (0-1.6)
== END ==
PROVIDERS: PCP Student in an Organized Health Care Education/Training Program; Referring Provider Student in an Organized Health Care Education/Training Program; Visit Provider Student in an Organized Health Care Education/Training Program
DX: E11.9 Type 2 diabetes mellitus without complications (principal); E11.69 Type 2 diabetes mellitus with other specified complication; E78.5 Hyperlipidemia, unspecified; E66.01 Morbid (severe) obesity due to excess calories; E03.9 Hypothyroidism, unspecified
CPT/HCPCS: 36415; 80053; 80061; 82043; 82570; 83036; 84443; 85025

== ENCOUNTER → 2024-06-29 10:21 | Outpatient (CLI) | payer OTHER, SELFPAY ==
[2024-06-29 11:18] LABS: HEMOLYSIS < 15 (0-50); Iron 91 ug/dL (49-181)
[2024-06-29 11:29] LABS: Percent Iron Saturation 29 % (20-50); Total Iron Binding Capacity 316 ug/dL (261-462); Transferrin 294 mg/dL (206-381)
[2024-06-29 11:52] LABS: Ferritin 61 ng/mL (18-464)
== END ==
PROVIDERS: Family Provider Student in an Organized Health Care Education/Training Program; PCP Student in an Organized Health Care Education/Training Program; Referring Provider Student in an Organized Health Care Education/Training Program; Visit Provider Student in an Organized Health Care Education/Training Program
DX: G25.81 Restless legs syndrome (principal); D50.9 Iron deficiency anemia, unspecified
CPT/HCPCS: 36415; 82728; 83540; 83550

== ENCOUNTER → 2024-07-10 13:09 | Outpatient (CLI) | payer OTHER, SELFPAY ==
[2024-07-10 14:49] LABS: COVID-19 CEPHEID 4-PLEX PCR Negative (Negative); Influenza A - CEPHEID Flu A NEGATIVE (NEGATIVE); Influenza B - CEPHEID Flu B NEGATIVE (NEGATIVE); Respiratory Syncytial Virus Negative (Negative)
== END ==
PROVIDERS: Family Provider Student in an Organized Health Care Education/Training Program; PCP Student in an Organized Health Care Education/Training Program; Visit Provider Physician Assistant Surgical
DX: R05.1 Acute cough (principal)
CPT/HCPCS: 0241U

== ENCOUNTER 2024-08-21 08:15 | Outpatient (RCR) | payer OTHER, SELFPAY ==
--- NOTE | 2024-06-08 16:50 | PT.OIE ---
Current Diagnoses Separation of muscle (nontraumatic), other site (06/08/24) Past Medical History (Last Reviewed 04/16/23 @ 12:05 by Margaret Marinelli DO) Benign essential hypertension Hypothyroidism Painless hematuria Type 2 diabetes mellitus Visit Care Team Role Provider Type Deborah Aguilar MD Attending Provider Physician Family Provider Primary Care Provider Referring Provider Specialty: Family Practice Obstetrics Address: [address] [place] [address], [facility] Email: [email or web address] Physical Therapy Initial Evaluation PT-OP-A Visit Information Start: 06/08/24 16:05 Freq: Status: Active Protocol: Document 06/08/24 10:45 DCW (Rec: 06/08/24 16:29 DCW [id number]) Out-Patient Physical Therapy Visit Information Visit Information Visit Type Initial Evaluation Visit Start Time 10:45 Visit Stop Time 11:20 Visit Number 1 Number of SAP PORTAL DEVELOPER Visits 0 Evaluation Information Evaluation Date 06/08/24 PT-OP-B Current Condition Start: 06/08/24 16:05 Freq: Status: Active Protocol: Document 06/08/24 10:45 DCW (Rec: 06/08/24 16:29 DCW [id number]) Current Condition History of Current Condition Onset Date Five year history Current Complaints Diastasis Recti History of Current Condition Pt is a 64 year old male presenting with a ~5 year history of Diastasis Recti. Pt reports that due to various medications, he weight has yo- yo'ed over the past 5 years, starting with a sudden ballooning up and then losing 50 pounds about five years ago, and was left with a large Diastasis Recti. Pt reports that he was performing planks and crunches, and it seemed to go away. Recently, he was once again given new BP medication, and gained 30 pounds in a month, and 50 pounds over 45 total days. Then went off the medication, and lost 12 pounds in 15 days. Noticed at that time that his Diastasis had returned.Does not experience any unpleasant symptoms or pain, would just like to get rid of it. Does have a history of umbilical hernia with a mesh repair. PT-OP-C Subjective Start: 06/08/24 16:05 Freq: Status: Active Protocol: Document 06/08/24 10:45 DCW (Rec: 06/08/24 16:29 DCW [id number]) OP-PT Subjective Patient Comments Patient Comments My weight has been all over the place, but I got some new medication, and it seems like it stabilized right now. PT-OP-F Manual Assessment Start: 06/08/24 16:05 Freq: Status: Active Protocol: Document 06/08/24 10:45 DCW (Rec: 06/08/24 16:29 DCW [id number]) Manual Assessments Other Manual Assessments Other Manual Assessments Diastasis Recti length measured at 21.5 cm along abdominal midline. At widest point, measured at 6.5 cm PT-OP-K Range of Motion Start: 06/08/24 16:05 Freq: Status: Active Protocol: Document 06/08/24 10:45 DCW (Rec: 06/08/24 16:29 DCW [id number]) Hip Goniometric Range of Motion Hip Right Passive Testing Position Supine Internal Rotation 19 External Rotation 58 Right Active Testing Position Sitting Internal Rotation 13 External Rotation 31 Left Passive Testing Position Supine Internal Rotation 18 External Rotation 57 Left Active Testing Position Sitting Internal Rotation 14 External Rotation 40 PT-OP-M Strength Start: 06/08/24 16:05 Freq: Status: Active Protocol: Document 06/08/24 10:45 DCW (Rec: 06/08/24 16:29 DCW [id number]) Trunk Strength Trunk Manual Muscle Testing Comments Pt able to perform appropriate TrA contraction upon request, demonstrates good abdominal bracing. PT-OP-Q Treatments Start: 06/08/24 16:05 Freq: Status: Active Protocol: Document 06/08/24 10:45 DCW (Rec: 06/08/24 16:50 DCW [id number]) Therapeutic Exercises Supine Exercises Marching Supine Exercise Name PPT /c TrA bracing - supine marching Heel Slides Supine Exercise Name PPT /c TrA bracing - heel slides PPT Supine Exercise Name PPT /c TrA bracing Standing Exercises Pallof Press Standing Exercise Name Pallof Press Side bilateral Resistance Lv 4 T-band PT-OP-T Assessment and Plan Start: 06/08/24 16:05 Freq: Status: Active Protocol: Document 06/08/24 10:45 DCW (Rec: 06/08/24 16:50 SAMREEN [id number]) Physical Therapy Assessment Rehab Potential Rehabilitation Potential Fair Evaluation Complexity Number of Personal Factors/Comorbidities 1-2 Number of Body Systems Impaired 3 Clinical Presentation at Evaluation Stable Impairments Impairments ROM,Strength,Tone Goals Three Impairment Pt presents with decreased active hip internal rotation ( 14?L, 13?R) Sponge Packer Goal (LTG) Pt to exhibit increased active hip internal rotation to >25? bilaterally in order to demonstrate improved functional hip mobility for performing daily activities. LTG Duration 08/09/24 Two Impairment Diastasis Recti with trunk rotation Sponge Packer Goal (LTG) Pt to demonstrate ability to maintain core contraction during trunk rotation to decrease prominence of Diastasis Recti LTG Duration 08/09/24 One Impairment Pt displays severe Diastasis Recti lifting head from supine Snf Goal (LTG) Pt to demonstrate ability to perform head lift in supine while maintaining tension throughout Diastasis Recti LTG Duration 08/09/24 Assessment Summary Assessment Pt presents with signs and symptoms consistent with referring diagnosis of Diastasis Recti. With any increased use of abdominal muscles, large Diastasis Recti measuring 21.5 cm long and 6. 5 cm at widest point causes large bulge in pt's abdomen. Pt also displays decrease in bilateral hip internal rotation, restricted to AROM of 13-14?. Pt does not note any ongoing symptoms of pain or functional restriction secondary to Diastasis Recti. Pt may benefit from skilled therapeutic intervention focusing on hip mobility, TrA training, and strengthening in order to reduce effects of Diastasis Recti. Physical Therapy Plan Frequency and Duration Frequency of Treatment 1-2x/week Plan of Care Start Date 06/08/24 Plan of Care End Date 08/09/24 Therapeutic Interventions Therapeutic Interventions Home Exercise Program,Manual Therapy,Neuromuscular Re- education,Orthotic/Prosthetic Management,Patient/Caregiver Education,Self-Care/Home Management,Soft Tissue Mobilization,Taping, Therapeutic Activities, Therapeutic Exercises Next Visit Focus/Plan Next Note Type Treatment Note
--- NOTE | 2024-06-08 16:51 | PT.OPPOC ---
Physical, Occupational & Speech Therapy At [facility] Current Diagnoses Separation of muscle (nontraumatic), other site (06/08/24) Visit Care Team Role Provider Type Deborah Aguilar MD Attending Provider Physician Family Provider Primary Care Provider Referring Provider Specialty: Family Practice Obstetrics Address: [address] [place] [address], [facility] Email: [email or web address] Plan Of Care PT-OP-B Current Condition Start: 06/08/24 16:05 Freq: Status: Active Protocol: Document 06/08/24 10:45 DCW (Rec: 06/08/24 16:29 DCW [id number]) Current Condition History of Current Condition Onset Date Five year history Current Complaints Diastasis Recti History of Current Condition Pt is a 64 year old male presenting with a ~5 year history of Diastasis Recti. Pt reports that due to various medications, he weight has yo- yo'ed over the past 5 years, starting with a sudden ballooning up and then losing 50 pounds about five years ago, and was left with a large Diastasis Recti. Pt reports that he was performing planks and crunches, and it seemed to go away. Recently, he was once again given new BP medication, and gained 30 pounds in a month, and 50 pounds over 45 total days. Then went off the medication, and lost 12 pounds in 15 days. Noticed at that time that his Diastasis had returned.Does not experience any unpleasant symptoms or pain, would just like to get rid of it. Does have a history of umbilical hernia with a mesh repair. PT-OP-T Assessment and Plan Start: 06/08/24 16:05 Freq: Status: Active Protocol: Document 06/08/24 10:45 DCW (Rec: 06/08/24 16:50 DCW [id number]) Physical Therapy Assessment Rehab Potential Rehabilitation Potential Fair Evaluation Complexity Number of Personal Factors/Comorbidities 1-2 Number of Body Systems Impaired 3 Clinical Presentation at Evaluation Stable Impairments Impairments ROM,Strength,Tone Goals Three Impairment Pt presents with decreased active hip internal rotation ( 14?L, 13?R) Automotive Sales Manager Goal (LTG) Pt to exhibit increased active hip internal rotation to >25? bilaterally in order to demonstrate improved functional hip mobility for performing daily activities. LTG Duration 08/09/24 Two Impairment Diastasis Recti with trunk rotation Automotive Sales Manager Goal (LTG) Pt to demonstrate ability to maintain core contraction during trunk rotation to decrease prominence of Diastasis Recti LTG Duration 08/09/24 One Impairment Pt displays severe Diastasis Recti lifting head from supine Penitentiary Goal (LTG) Pt to demonstrate ability to perform head lift in supine while maintaining tension throughout Diastasis Recti LTG Duration 08/09/24 Assessment Summary Assessment Pt presents with signs and symptoms consistent with referring diagnosis of Diastasis Recti. With any increased use of abdominal muscles, large Diastasis Recti measuring 21.5 cm long and 6. 5 cm at widest point causes large bulge in pt's abdomen. Pt also displays decrease in bilateral hip internal rotation, restricted to AROM of 13-14?. Pt does not note any ongoing symptoms of pain or functional restriction secondary to Diastasis Recti. Pt may benefit from skilled therapeutic intervention focusing on hip mobility, TrA training, and strengthening in order to reduce effects of Diastasis Recti. Physical Therapy Plan Frequency and Duration Frequency of Treatment 1-2x/week Plan of Care Start Date 06/08/24 Plan of Care End Date 08/09/24 Therapeutic Interventions Therapeutic Interventions Home Exercise Program,Manual Therapy,Neuromuscular Re- education,Orthotic/Prosthetic Management,Patient/Caregiver Education,Self-Care/Home Management,Soft Tissue Mobilization,Taping, Therapeutic Activities, Therapeutic Exercises Next Visit Focus/Plan Next Note Type Treatment Note Plan of Care Dates Plan of Care Start Date 06/08/24 Plan of Care End Date 08/09/24 Electronically Signed by: Obi Blank, PT 06/08/24 6751 If you are in agreement with this Plan of Care, please return a signed and dated copy. I have reviewed this Plan of Care and certify that the skilled therapy services above are required to meet the patient?s needs. Physician Signature Date Printed Name and Credentials Clinical Instructor Signature Printed Name and Credentials
--- NOTE | 2024-06-11 16:45 | PT.OTN ---
Current Diagnoses Separation of muscle (nontraumatic), other site (06/11/24) Physical Therapy Treatment Note PT-OP-A Visit Information Start: 06/08/24 16:05 Freq: Status: Active Protocol: Document 06/11/24 09:08 LRN (Rec: 06/11/24 09:50 LRN [id number]) Out-Patient Physical Therapy Visit Information Visit Information Visit Type Treatment Note Visit Start Time 09:08 Visit Stop Time 09:48 Visit Number 2 Evaluation Information Evaluation Date 06/08/24 PT-OP-B Current Condition Start: 06/08/24 16:05 Freq: Status: Active Protocol: Document 06/08/24 10:45 DCW (Rec: 06/08/24 16:29 DCW [id number]) Current Condition History of Current Condition Onset Date Five year history Current Complaints Diastasis Recti History of Current Condition Pt is a 64 year old male presenting with a ~5 year history of Diastasis Recti. Pt reports that due to various medications, he weight has yo- yo'ed over the past 5 years, starting with a sudden ballooning up and then losing 50 pounds about five years ago, and was left with a large Diastasis Recti. Pt reports that he was performing planks and crunches, and it seemed to go away. Recently, he was once again given new BP medication, and gained 30 pounds in a month, and 50 pounds over 45 total days. Then went off the medication, and lost 12 pounds in 15 days. Noticed at that time that his Diastasis had returned.Does not experience any unpleasant symptoms or pain, would just like to get rid of it. Does have a history of umbilical hernia with a mesh repair. 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 Has had R knee problems and was told his R leg was shorter and R hip ache. 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 PT-OP-F Manual Assessment Start: 06/08/24 16:05 Freq: Status: Active Protocol: Document 06/08/24 10:45 DCW (Rec: 06/08/24 16:29 DCW [id number]) Manual Assessments Other Manual Assessments Other Manual Assessments Diastasis Recti length measured at 21.5 cm along abdominal midline. At widest point, measured at 6.5 cm PT-OP-K Range of Motion Start: 06/08/24 16:05 Freq: Status: Active Protocol: Document 06/08/24 10:45 DCW (Rec: 06/08/24 16:29 DCW [id number]) Hip Goniometric Range of Motion Hip Right Passive Testing Position Supine Internal Rotation 19 External Rotation 58 Right Active Testing Position Sitting Internal Rotation 13 External Rotation 31 Left Passive Testing Position Supine Internal Rotation 18 External Rotation 57 Left Active Testing Position Sitting Internal Rotation 14 External Rotation 40 PT-OP-M Strength Start: 06/08/24 16:05 Freq: Status: Active Protocol: Document 06/08/24 10:45 DCW (Rec: 06/08/24 16:29 DCW [id number]) Trunk Strength Trunk Manual Muscle Testing Comments Pt able to perform appropriate TrA contraction upon request, demonstrates good abdominal bracing. PT-OP-Q Treatments Start: 06/08/24 16:05 Freq: Status: Active Protocol: Document 06/11/24 09:08 LRN (Rec: 06/11/24 09:50 LRN [id number]) Therapeutic Exercises Supine Exercises Ilipsoas stretch Side bilateral Reps/Minutes 60 SH x 1 Lateral Hip Stretch Supine Exercise Name Stretch with TA tight and chest breathing, extra time needed Side bilateral Equipment Used Belt: Extra time needed for education on use of belt Reps/Minutes 60+ SH x 1 Comments Extra time needed to determine max natalie stretch position Piriformis stretch Supine Exercise Name L >R Ankle over knee>KTC w/ belt above ankle to assist pull Side bilateral Resistance Stretch with TA tight and chest breathing - extra time needed for trng Equipment Used Belt Reps/Minutes 60+ SH x 2 each Comments Extra time needed to detemine max tolerated stretch Marching Supine Exercise Name Reviewed PPT /c TrA bracing - supine marching Reps/Minutes 2x DC'd until pt able to hold TA Comments Extra time needed to determine if pt able to hold TA w/ exercise. Heel Slides Supine Exercise Name DC'd - until pt able to hold TA Reps/Minutes 1x Comments Extra time needed to determine if pt able to hold TA w/ exercise. Self-Care/Home Management Treatment Activities Self-Care/Home Management Activities Issued & reviewed HEP: Piriformis (ankle over knee> KTC), Lateral, and Ilipsoas stretch. PT-OP-T Assessment and Plan Start: 06/08/24 16:05 Freq: Status: Active Protocol: Document 06/11/24 09:08 LRN (Rec: 06/11/24 09:50 LRN [id number]) Physical Therapy Assessment Goals Three Impairment Pt presents with decreased active hip internal rotation ( 14?L, 13?R) Senior Living Goal (LTG) Pt to exhibit increased active hip internal rotation to >25? bilaterally in order to demonstrate improved functional hip mobility for performing daily activities. LTG Duration 08/09/24 Two Impairment Diastasis Recti with trunk rotation Senior Living Goal (LTG) Pt to demonstrate ability to maintain core contraction during trunk rotation to decrease prominence of Diastasis Recti LTG Duration 08/09/24 One Impairment Pt displays severe Diastasis Recti lifting head from supine Bedspring Assembler Goal (LTG) Pt to demonstrate ability to perform head lift in supine while maintaining tension throughout Diastasis Recti LTG Duration 08/09/24 Assessment Summary Assessment Pt is a 64 yo male with a large DR (21.5 cm long and 6.5 cm at widest point) and visible abdominal hernia, and decr'd kari hip active IR (123- 14 degs). Today he is not able to maintain a TA with mvmt of legs and with breathing, because he is an abdominal breathing and not chest breath. Physical Therapy Plan Frequency and Duration Frequency of Treatment 1-2x/week Plan of Care Start Date 06/08/24 Plan of Care End Date 08/09/24 Next Visit Focus/Plan Next Note Type Treatment Note Next Visit Plan rehab. Review hip and chest stretches issued. Teach chest breathing to be able to hold a sustained TA. Manual: Stretch Trunk rotators, K-tape for . Ex: TA and trunk rotator strengthening. Try hands knees and sidelie TA strengthening.
--- NOTE | 2024-06-26 16:10 | PT.OTN ---
Current Diagnoses Separation of muscle (nontraumatic), other site (06/26/24) Physical Therapy Treatment Note PT-OP-A Visit Information Start: 06/08/24 16:05 Freq: Status: Active Protocol: Document 06/26/24 07:31 LRN (Rec: 06/26/24 08:16 LRN [id number]) Out-Patient Physical Therapy Visit Information Visit Information Visit Type Treatment Note Visit Start Time 07:31 Visit Stop Time 08:12 Visit Number 2 Evaluation Information Evaluation Date 06/08/24 PT-OP-B Current Condition Start: 06/08/24 16:05 Freq: Status: Active Protocol: Document 06/08/24 10:45 DCW (Rec: 06/08/24 16:29 DCW [id number]) Current Condition History of Current Condition Onset Date Five year history Current Complaints Diastasis Recti History of Current Condition Pt is a 64 year old male presenting with a ~5 year history of Diastasis Recti. Pt reports that due to various medications, he weight has yo- yo'ed over the past 5 years, starting with a sudden ballooning up and then losing 50 pounds about five years ago, and was left with a large Diastasis Recti. Pt reports that he was performing planks and crunches, and it seemed to go away. Recently, he was once again given new BP medication, and gained 30 pounds in a month, and 50 pounds over 45 total days. Then went off the medication, and lost 12 pounds in 15 days. Noticed at that time that his Diastasis had returned.Does not experience any unpleasant symptoms or pain, would just like to get rid of it. Does have a history of umbilical hernia with a mesh repair. PT-OP-C Subjective Start: 06/08/24 16:05 Freq: Status: Active Protocol: Document 06/26/24 07:31 LRN (Rec: 06/26/24 08:16 LRN [id number]) OP-PT Subjective Patient Comments Patient Comments Reports increased kari LBP with start of hip stretches. PT-OP-F Manual Assessment Start: 06/08/24 16:05 Freq: Status: Active Protocol: Document 06/08/24 10:45 DCW (Rec: 06/08/24 16:29 DCW [id number]) Manual Assessments Other Manual Assessments Other Manual Assessments Diastasis Recti length measured at 21.5 cm along abdominal midline. At widest point, measured at 6.5 cm PT-OP-K Range of Motion Start: 06/08/24 16:05 Freq: Status: Active Protocol: Document 06/08/24 10:45 DCW (Rec: 06/08/24 16:29 DCW [id number]) Hip Goniometric Range of Motion Hip Right Passive Testing Position Supine Internal Rotation 19 External Rotation 58 Right Active Testing Position Sitting Internal Rotation 13 External Rotation 31 Left Passive Testing Position Supine Internal Rotation 18 External Rotation 57 Left Active Testing Position Sitting Internal Rotation 14 External Rotation 40 PT-OP-M Strength Start: 06/08/24 16:05 Freq: Status: Active Protocol: Document 06/08/24 10:45 DCW (Rec: 06/08/24 16:29 DCW [id number]) Trunk Strength Trunk Manual Muscle Testing Comments Pt able to perform appropriate TrA contraction upon request, demonstrates good abdominal bracing. PT-OP-Q Treatments Start: 06/08/24 16:05 Freq: Status: Active Protocol: Document 06/26/24 07:31 LRN (Rec: 06/26/24 08:16 LRN [id number]) Cardio Equipment Elliptical Duration (Minutes) 5 Resistance 1 Other 10' total time to determine ex tolerance Treadmill Duration (Minutes) 3 Speed 0.8 Other Extra time needed to determine safety on TM and tolerance to ex Therapeutic Exercises Supine Exercises TA tightening Reps/Minutes 10 SH x 6 Lateral Hip Stretch Supine Exercise Name HOLD Piriformis stretch Supine Exercise Name L >R Ankle over knee>KTC w/ belt above ankle to assist pull Side bilateral Equipment Used Belt Reps/Minutes 10 SH x 6 each - 10' to teach Comments Extra time needed to determine tolerated stretch position Sidelying Exercises TA tightening Sidelying Exercise Name TA hold using arms overhead to assist with chest breating Reps/Minutes 10 SH Comments Much cuing/direction needed to keep TA tight & coodinate arm mvmts w/breath PT-OP-T Assessment and Plan Start: 06/08/24 16:05 Freq: Status: Active Protocol: Document 06/26/24 07:31 LRN (Rec: 06/26/24 08:16 LRN [id number]) Physical Therapy Assessment Goals Three Impairment Pt presents with decreased active hip internal rotation ( 14?L, 13?R) Biology Manager Goal (LTG) Pt to exhibit increased active hip internal rotation to >25? bilaterally in order to demonstrate improved functional hip mobility for performing daily activities. LTG Duration 08/09/24 Two Impairment Diastasis Recti with trunk rotation Half-Way Goal (LTG) Pt to demonstrate ability to maintain core contraction during trunk rotation to decrease prominence of Diastasis Recti LTG Duration 08/09/24 One Impairment Pt displays severe Diastasis Recti lifting head from supine Half-Way Goal (LTG) Pt to demonstrate ability to perform head lift in supine while maintaining tension throughout Diastasis Recti LTG Duration 08/09/24 Assessment Summary Assessment Pt is a 64 yo male with a large DR (21.5 cm long and 6.5 cm at widest point) and visible abdominal hernia, and decr'd kari hip active IR (123- 14 degs). Today, much education needed to get stretch to Piriformis that would not be an overstretch. Pt may still be causing overstretch; therefore will need to monitor. TA very weak, engages lateral trunk for sidelie TA tightening. Physical Therapy Plan Frequency and Duration Frequency of Treatment 1-2x/week Plan of Care Start Date 06/08/24 Plan of Care End Date 08/09/24 Next Visit Focus/Plan Next Note Type Treatment Note Next Visit Plan rehab. Monitor for overstretch to hip with Piriformis, chest stretches with TA & sidelie TA. Manual: Stretch Trunk rotators, K-tape for . Ex: TA and trunk rotator strengthening. Try hands knees and sidelie TA strengthening.
--- NOTE | 2024-06-28 10:24 | PT.OTN ---
Current Diagnoses Separation of muscle (nontraumatic), other site (06/28/24) Physical Therapy Treatment Note PT-OP-A Visit Information Start: 06/08/24 16:05 Freq: Status: Active Protocol: Document 06/28/24 08:20 LRN (Rec: 06/28/24 09:02 LRN [id number]) Out-Patient Physical Therapy Visit Information Visit Information Visit Type Treatment Note Visit Start Time 08:20 Visit Stop Time 09:01 Visit Number 4 Evaluation Information Evaluation Date 06/08/24 PT-OP-B Current Condition Start: 06/08/24 16:05 Freq: Status: Active Protocol: Document 06/08/24 10:45 DCW (Rec: 06/08/24 16:29 DCW [id number]) Current Condition History of Current Condition Onset Date Five year history Current Complaints Diastasis Recti History of Current Condition Pt is a 64 year old male presenting with a ~5 year history of Diastasis Recti. Pt reports that due to various medications, he weight has yo- yo'ed over the past 5 years, starting with a sudden ballooning up and then losing 50 pounds about five years ago, and was left with a large Diastasis Recti. Pt reports that he was performing planks and crunches, and it seemed to go away. Recently, he was once again given new BP medication, and gained 30 pounds in a month, and 50 pounds over 45 total days. Then went off the medication, and lost 12 pounds in 15 days. Noticed at that time that his Diastasis had returned.Does not experience any unpleasant symptoms or pain, would just like to get rid of it. Does have a history of umbilical hernia with a mesh repair. PT-OP-C Subjective Start: 06/08/24 16:05 Freq: Status: Active Protocol: Document 06/28/24 08:20 LRN (Rec: 06/28/24 09:02 LRN [id number]) OP-PT Subjective Patient Comments Patient Comments States he is willing to shave his belly for next visit. PT-OP-F Manual Assessment Start: 06/08/24 16:05 Freq: Status: Active Protocol: Document 06/08/24 10:45 DCW (Rec: 06/08/24 16:29 DCW [id number]) Manual Assessments Other Manual Assessments Other Manual Assessments Diastasis Recti length measured at 21.5 cm along abdominal midline. At widest point, measured at 6.5 cm PT-OP-K Range of Motion Start: 06/08/24 16:05 Freq: Status: Active Protocol: Document 06/08/24 10:45 DCW (Rec: 06/08/24 16:29 DCW [id number]) Hip Goniometric Range of Motion Hip Right Passive Testing Position Supine Internal Rotation 19 External Rotation 58 Right Active Testing Position Sitting Internal Rotation 13 External Rotation 31 Left Passive Testing Position Supine Internal Rotation 18 External Rotation 57 Left Active Testing Position Sitting Internal Rotation 14 External Rotation 40 PT-OP-M Strength Start: 06/08/24 16:05 Freq: Status: Active Protocol: Document 06/08/24 10:45 DCW (Rec: 06/08/24 16:29 DCW [id number]) Trunk Strength Trunk Manual Muscle Testing Comments Pt able to perform appropriate TrA contraction upon request, demonstrates good abdominal bracing. PT-OP-Q Treatments Start: 06/08/24 16:05 Freq: Status: Active Protocol: Document 06/28/24 08:20 LRN (Rec: 06/28/24 09:02 LRN [id number]) Therapeutic Exercises Supine Exercises Piriformis stretch Supine Exercise Name L >R Ankle over knee>KTC w/ belt above ankle to assist pull Side bilateral Equipment Used Belt Reps/Minutes 10 SH x 6 each - 10' to teach Comments Extra time needed to determine tolerated stretch position Sidelying Exercises TA tightening Sidelying Exercise Name TA hold during slow breaths Side bilateral Reps/Minutes 10 SH x 10 Comments initial cuing to hold TA while chest breathing Standing Exercises Pallof Press Standing Exercise Name EXtra time for cuing for criteria advancing resistance Side bilateral Reps/Minutes 15x each Comments Cued for positioning of back, posture, TA before punching fwd. Other Exercises 4 pt Other Exercise Name TA longhold during pt's slow breaths. Reps/Minutes 10 SH (3 breaths) x Self-Care/Home Management Treatment Activities Self-Care/Home Management Activities Issued Lev 4 TBand for home ex 's. Pt to ex more times a day and less reps and gradually increase reps with less times per day ex. Pt to add walking program w/tA tight. PT-OP-T Assessment and Plan Start: 12/20/24 16:05 Freq: Status: Active Protocol: Document 06/28/24 08:20 LRN (Rec: 06/28/24 09:02 LRN [id number]) Physical Therapy Assessment Goals Three Impairment Pt presents with decreased active hip internal rotation ( 14?L, 13?R) Retirement Goal (LTG) Pt to exhibit increased active hip internal rotation to >25? bilaterally in order to demonstrate improved functional hip mobility for performing daily activities. LTG Duration 08/09/24 Two Impairment Diastasis Recti with trunk rotation Retirement Goal (LTG) Pt to demonstrate ability to maintain core contraction during trunk rotation to decrease prominence of Diastasis Recti LTG Duration 08/09/24 One Impairment Pt displays severe Diastasis Recti lifting head from supine Building Components Designer Goal (LTG) Pt to demonstrate ability to perform head lift in supine while maintaining tension throughout Diastasis Recti LTG Duration 08/09/24 Assessment Summary Assessment Pt is a 64 yo male with a large DR (21.5 cm long and 6.5 cm at widest point) and visible abdominal hernia, and decr'd kari hip active IR (123- 14 degs). Pt is becoming more aware of keeping TA tight with transfers, and can hold TA longer during inhale. Pt to use belly breathing at night for anxiety and stress relief. Good form w/Paloff press, able to do w/o bulging. Physical Therapy Plan Frequency and Duration Frequency of Treatment 1-2x/week Plan of Care Start Date 06/08/24 Plan of Care End Date 08/09/24 Next Visit Focus/Plan Next Note Type Treatment Note Next Visit Plan rehab. Monitor for pain in hips w/Piriformis stretch, add Ilipsoas stretch if no increase hip pain with piriformis stretch next visit. Cont TA strengthening & review 4pt ex. Manual: Stretch Trunk rotators, K-tape for Ex: TA and trunk rotator strengthening. Try hands knees and sidelie TA strengthening.
--- NOTE | 2024-07-02 11:12 | PT-OP ANOTE ---
08:25 Pt notified of missed appt, and offered pt to call for appt later in the morning.
--- NOTE | 2024-07-23 10:20 | PT.OTN ---
Current Diagnoses Separation of muscle (nontraumatic), other site (07/23/24) Physical Therapy Treatment Note PT-OP-A Visit Information Start: 06/08/24 16:05 Freq: Status: Active Protocol: Document 07/23/24 07:30 LRN (Rec: 07/23/24 08:19 LRN [id number]) Out-Patient Physical Therapy Visit Information Visit Information Visit Type Treatment Note Visit Start Time 07:30 Visit Stop Time 08:18 Visit Number 5 Evaluation Information Evaluation Date 06/08/24 Precautions Precautions Umbilical hernia rpr w/mesh PT-OP-B Current Condition Start: 06/08/24 16:05 Freq: Status: Active Protocol: Document 06/08/24 10:45 DCW (Rec: 06/08/24 16:29 DCW [id number]) Current Condition History of Current Condition Onset Date Five year history Current Complaints Diastasis Recti History of Current Condition Pt is a 64 year old male presenting with a ~5 year history of Diastasis Recti. Pt reports that due to various medications, he weight has yo- yo'ed over the past 5 years, starting with a sudden ballooning up and then losing 50 pounds about five years ago, and was left with a large Diastasis Recti. Pt reports that he was performing planks and crunches, and it seemed to go away. Recently, he was once again given new BP medication, and gained 30 pounds in a month, and 50 pounds over 45 total days. Then went off the medication, and lost 12 pounds in 15 days. Noticed at that time that his Diastasis had returned.Does not experience any unpleasant symptoms or pain, would just like to get rid of it. Does have a history of umbilical hernia with a mesh repair. PT-OP-C Subjective Start: 06/08/24 16:05 Freq: Status: Active Protocol: Document 07/23/24 07:30 LRN (Rec: 07/23/24 08:19 LRN [id number]) OP-PT Subjective Patient Comments Patient Comments Has been sick and coughing a lot. Has been doing the hip stretches and the LB is is less restrictive getting up in the morning. States his umbilical mesh has come loose with all the coughing. States primary care provider is aware. PT-OP-F Manual Assessment Start: 06/08/24 16:05 Freq: Status: Active Protocol: Document 06/08/24 10:45 DCW (Rec: 06/08/24 16:29 DCW [id number]) Manual Assessments Other Manual Assessments Other Manual Assessments Diastasis Recti length measured at 21.5 cm along abdominal midline. At widest point, measured at 6.5 cm PT-OP-K Range of Motion Start: 06/08/24 16:05 Freq: Status: Active Protocol: Document 06/08/24 10:45 DCW (Rec: 06/08/24 16:29 DCW [id number]) Hip Goniometric Range of Motion Hip Right Passive Testing Position Supine Internal Rotation 19 External Rotation 58 Right Active Testing Position Sitting Internal Rotation 13 External Rotation 31 Left Passive Testing Position Supine Internal Rotation 18 External Rotation 57 Left Active Testing Position Sitting Internal Rotation 14 External Rotation 40 PT-OP-M Strength Start: 06/08/24 16:05 Freq: Status: Active Protocol: Document 06/08/24 10:45 DCW (Rec: 06/08/24 16:29 DCW [id number]) Trunk Strength Trunk Manual Muscle Testing Comments Pt able to perform appropriate TrA contraction upon request, demonstrates good abdominal bracing. PT-OP-Q Treatments Start: 06/08/24 16:05 Freq: Status: Active Protocol: Document 07/23/24 07:30 LRN (Rec: 07/23/24 08:19 LRN [id number]) Therapeutic Exercises Supine Exercises SKTC Supine Exercise Name Pt reviewed his added HEP Reps/Minutes 1x TA tightening Reps/Minutes 10 SH x [address] location checked Sidelying Exercises TA tightening Sidelying Exercise Name TA hold during slow breaths Side bilateral Reps/Minutes 15 SH x 10 Comments Extra time to perform, deter side of weakness, & side DR opening worse Other Exercises 4 pt Other Exercise Name TA longhold during pt's slow breaths. Reps/Minutes 10 SH (3 breaths) Manual Therapy Treatment Consent Patient gave verbal consent for manual Yes treatment Soft Tissue Mobilization Lateral trunk Body Location Trunk rotators Mobilization Type Sustained Pressure Intensity/Depth Moderate Body Position Supine Comments Pt trained in self care stretch. Taping ABdomen Body Location DR Treatment Focus Facilitate Closure Type of Tape Kinesio Tape Skin Inspection Good Self-Care/Home Management Treatment Activities Self-Care/Home Management Activities Issued & reviewed HEP: TA tightening in sidelie. PT-OP-T Assessment and Plan Start: 06/08/24 16:05 Freq: Status: Active Protocol: Document 07/23/24 07:30 LRN (Rec: 07/23/24 08:19 LRN [id number]) Physical Therapy Assessment Goals Three Impairment Pt presents with decreased active hip internal rotation ( 14?L, 13?R) Picture Frames Inspector Goal (LTG) Pt to exhibit increased active hip internal rotation to >25? bilaterally in order to demonstrate improved functional hip mobility for performing daily activities. LTG Duration 08/09/24 Two Impairment Diastasis Recti with trunk rotation Picture Frames Inspector Goal (LTG) Pt to demonstrate ability to maintain core contraction during trunk rotation to decrease prominence of Diastasis Recti LTG Duration 08/09/24 One Impairment Pt displays severe Diastasis Recti lifting head from supine Picture Frames Inspector Goal (LTG) Pt to demonstrate ability to perform head lift in supine while maintaining tension throughout Diastasis Recti LTG Duration 08/09/24 Assessment Summary Assessment 64 yo male with a large DR (21 .5 cm long and 6.5 cm at widest point) and visible abdominal hernia, and decr'd kari hip active IR (12-14 degs) , prior umbilical hernia rpr w /mesh. Today, there is concern by pt that his recent coughing illness has caused his abdominal mesh to come loose. He demonstrates greater abdominal doming (from ~1-2 below & 1-7 above umbilicus) in R sidelie due to weakness of TA, L>R. The pt' s LBP is less first in the morning with adherence to hip stretches & his addition of SKTC (no pain with hip stretches). Physical Therapy Plan Frequency and Duration Frequency of Treatment 1-2x/week Plan of Care Start Date 06/08/24 Plan of Care End Date 08/09/24 Next Visit Focus/Plan Next Note Type Treatment Note Next Visit Plan DR rehab. Discuss POC extension due to loss of 2 wks from illness. Assess response to K-tape. Review issued HEP & progress, & review self care manual trunk rot stretch (protecting of abdominal mesh). Add Ilipsoas stretch if no increase hip pain with piriformis stretch. Cont TA strengthening sup, 4pt ex and side with leg lift/ clamshell. Manual: Stretch Trunk rotators (caution abdominal mesh). Ex: TA and progress trunk rotator strengthening.
--- NOTE | 2024-08-06 17:27 | PT.OTN ---
Current Diagnoses Separation of muscle (nontraumatic), other site (08/06/24) Physical Therapy Treatment Note PT-OP-A Visit Information Start: 06/08/24 16:05 Freq: Status: Active Protocol: Document 08/06/24 08:19 LRN (Rec: 08/06/24 09:04 LRN [id number]) Out-Patient Physical Therapy Visit Information Visit Information Visit Type Treatment Note Visit Start Time 08:19 Visit Stop Time 09:02 Visit Number 7 Evaluation Information Evaluation Date 06/08/24 Precautions Precautions Umbilical hernia rpr w/mesh PT-OP-B Current Condition Start: 06/08/24 16:05 Freq: Status: Active Protocol: Document 06/08/24 10:45 DCW (Rec: 06/08/24 16:29 DCW [id number]) Current Condition History of Current Condition Onset Date Five year history Current Complaints Diastasis Recti History of Current Condition Pt is a 64 year old male presenting with a ~5 year history of Diastasis Recti. Pt reports that due to various medications, he weight has yo- yo'ed over the past 5 years, starting with a sudden ballooning up and then losing 50 pounds about five years ago, and was left with a large Diastasis Recti. Pt reports that he was performing planks and crunches, and it seemed to go away. Recently, he was once again given new BP medication, and gained 30 pounds in a month, and 50 pounds over 45 total days. Then went off the medication, and lost 12 pounds in 15 days. Noticed at that time that his Diastasis had returned.Does not experience any unpleasant symptoms or pain, would just like to get rid of it. Does have a history of umbilical hernia with a mesh repair. PT-OP-C Subjective Start: 06/08/24 16:05 Freq: Status: Active Protocol: Document 08/06/24 08:19 LRN (Rec: 08/06/24 09:04 LRN [id number]) OP-PT Subjective Patient Comments Patient Comments Hurt back 2 days ago, pain rated 8/10. Doesn't know what he did, although he does routine ex's with weights and after he did the ex's he's been doing for 6 wks (that he' s done for 2 yrs). Would like to take a month to do the ex's. States she stretches ( bends over and touches toes, rotates, and reaches to ceiling and shoulder/hip stretches issued, then HEP, then Lithuanian lifts (2-5# ), bent over rows, and standing shoulder ex's. PT-OP-F Manual Assessment Start: 06/08/24 16:05 Freq: Status: Active Protocol: Document 08/06/24 08:19 LRN (Rec: 08/06/24 19:08 LRN [id number]) Manual Assessments Other Manual Assessments Other Manual Assessments Diastasis Rectus: Diastasis Recti length measured at 18 cm along abdominal midline. (At widest point, measured at 6.5 cm on 06/08/24). Umbilicus 5 above: Xiphoid process Umbilicus 4 above: 3 finger width (~2.5 cm) Umbilicus 3 above: 3 finger widths Umbilicus 2 above: 3.5 finger widths Umbilicus 1 above: 4 finger widths Umbilicus Umbilicus: 1 below: Closed PT-OP-K Range of Motion Start: 06/08/24 16:05 Freq: Status: Active Protocol: Document 08/06/24 08:19 LRN (Rec: 08/06/24 19:04 LRN [id number]) Hip Goniometric Range of Motion Hip Right Passive Testing Position Supine Internal Rotation 25 Left Passive Testing Position Supine Internal Rotation 20 PT-OP-M Strength Start: 06/08/24 16:05 Freq: Status: Active Protocol: Document 06/08/24 10:45 DCW (Rec: 06/08/24 16:29 DCW [id number]) Trunk Strength Trunk Manual Muscle Testing Comments Pt able to perform appropriate TrA contraction upon request, demonstrates good abdominal bracing. PT-OP-Q Treatments Start: 06/08/24 16:05 Freq: Status: Active Protocol: Document 08/06/24 08:19 LRN (Rec: 08/06/24 09:04 LRN [id number]) Therapeutic Exercises Supine Exercises TA tightening Reps/Minutes 3' Comments DR assessed with TA & head lifts Piriformis stretch Supine Exercise Name PT stretching Comments ROM taken for IR Sidelying Exercises TA tightening Side bilateral Reps/Minutes 15x 2 Manual Therapy Treatment Soft Tissue Mobilization R back/low back Body Location Lumbar & lower thoracic paraspinals Mobilization Type Strumming Intensity/Depth Moderate Body Position Sidelying Joint Mobilizations L3-L5 Direction PA on R side to correct R rot Grade II Body Position L Sidelie Reps/Duration 13 Self-Care/Home Management Treatment Education Other Education Reviewed pt's home ex program of weight lifting he did the day of injury and discussed areas of caution with exercise and use of TA tighening for core stability. Activities Self-Care/Home Management Activities I/S and training: pt to hold ABdomen with towel or support belt or hand with sidelie<>sit transfers. PT-OP-T Assessment and Plan Start: 06/08/24 16:05 Freq: Status: Active Protocol: Document 08/06/24 08:19 LRN (Rec: 08/06/24 09:04 LRN [id number]) Physical Therapy Assessment Rehab Potential Rehabilitation Potential Fair Evaluation Complexity Number of Personal Factors/Comorbidities 1-2 Number of Body Systems Impaired 3 Clinical Presentation at Evaluation Evolving Impairments Impairments Activity Tolerance,ROM, Strength,Tone Goals Three Impairment Pt presents with decreased active hip internal rotation ( 14?L, 13?R) Fdc Goal (LTG) Pt to exhibit increased active hip internal rotation to >25? bilaterally in order to demonstrate improved functional hip mobility for performing daily activities. 08/06/24: Hip passive IR is 20? L, 25? R. LTG Duration 11/01/24 progressing 08/06/24 Two Impairment Diastasis Recti with trunk rotation Custodian Blood Bank Goal (LTG) Pt to demonstrate ability to maintain core contraction during trunk rotation to decrease prominence of Diastasis Recti. 07/31/24: HEP: sidelie TA w/ coordination of breath and also with mvmt. LTG Duration 11/01/24 progressed ex One Impairment Pt displays severe Diastasis Recti lifting head from supine Fdc Goal (LTG) Pt to demonstrate ability to perform head lift in supine while maintaining tension throughout Diastasis Recti. 08/06/24: Bulging is present with head lifts, but length of bulge has decreased to 18 cm (was 21.5 cm). LTG Duration 11/01/24 progressing Assessment Summary Assessment 64 yo male with a large DR ( initially 21.5 cm long and 6.5 cm at widest point) and visible abdominal hernia, decr 'd kari hip active IR (12-14 degs), prior umbilical hernia rpr w/mesh. Today, pt shows improved DR 18 cm long, see palpation above for DR width assessment and improved passive hip IR mobility of 20? L, 25? R. He had difficulty tolerating exercises due to onset of LBP of insidious onset, but through discussion the pt may have strained his lower back (sacral region) after performing his wgt lifting ex of Lithuanian deadlifts and standing rows w/ o UE support. The pt wants to decrease therapy to every 3 wks to be given more time to work on his home exercises before each appointment. I feel this would be appropriate as the pt has shown he can be consistent with his home exercises. Physical Therapy Plan Frequency and Duration Frequency of Treatment Every Other Week Duration of treatment (weeks) 12 Plan of Care Start Date 08/06/24 Plan of Care End Date 11/01/24 Therapeutic Interventions Therapeutic Interventions Home Exercise Program,Joint Mobilizations,Manual Therapy, Neuromuscular Re-education, Self-Care/Home Management,Soft Tissue Mobilization, Therapeutic Activities, Therapeutic Exercises Next Visit Focus/Plan Next Note Type Treatment Note Next Visit Plan DR rehab decr'd to 1x/3 wks. Next: Assess Active hip IR. Review self care manual trunk rot self stretch (protecting of abdominal mesh). Assist active hip IR stretch & add Iliopsoas stretch (if no increase hip pain with piriformis stretch). Cont TA strengthening (sup, 4 pt ex and side with leg lift/ clamshell). Manual: Stretch Trunk rotators (caution abdominal mesh). Ex: TA and trunk rotator strengthening.
--- NOTE | 2024-08-06 17:29 | PT.OPPOC ---
Physical, Occupational & Speech Therapy At [facility] Current Diagnoses Separation of muscle (nontraumatic), other site (08/06/24) Visit Care Team Role Provider Type Deborah Aguilar MD Attending Provider Physician Family Provider Primary Care Provider Referring Provider Specialty: Family Practice Obstetrics Address: [address] [place] [address], [facility] Email: [email or web address] Plan Of Care PT-OP-B Current Condition Start: 06/08/24 16:05 Freq: Status: Active Protocol: Document 06/08/24 10:45 DCW (Rec: 06/08/24 16:29 DCW [id number]) Current Condition History of Current Condition Onset Date Five year history Current Complaints Diastasis Recti History of Current Condition Pt is a 64 year old male presenting with a ~5 year history of Diastasis Recti. Pt reports that due to various medications, he weight has yo- yo'ed over the past 5 years, starting with a sudden ballooning up and then losing 50 pounds about five years ago, and was left with a large Diastasis Recti. Pt reports that he was performing planks and crunches, and it seemed to go away. Recently, he was once again given new BP medication, and gained 30 pounds in a month, and 50 pounds over 45 total days. Then went off the medication, and lost 12 pounds in 15 days. Noticed at that time that his Diastasis had returned.Does not experience any unpleasant symptoms or pain, would just like to get rid of it. Does have a history of umbilical hernia with a mesh repair. PT-OP-T Assessment and Plan Start: 06/08/24 16:05 Freq: Status: Active Protocol: Document 08/06/24 08:19 LRN (Rec: 08/06/24 09:04 LRN [id number]) Physical Therapy Assessment Rehab Potential Rehabilitation Potential Fair Evaluation Complexity Number of Personal Factors/Comorbidities 1-2 Number of Body Systems Impaired 3 Clinical Presentation at Evaluation Evolving Impairments Impairments Activity Tolerance,ROM, Strength,Tone Goals Three Impairment Pt presents with decreased active hip internal rotation ( 14?L, 13?R) Half-Way Goal (LTG) Pt to exhibit increased active hip internal rotation to >25? bilaterally in order to demonstrate improved functional hip mobility for performing daily activities. 08/06/24: Hip passive IR is 20? L, 25? R. LTG Duration 11/01/24 progressing 08/06/24 Two Impairment Diastasis Recti with trunk rotation Half-Way Goal (LTG) Pt to demonstrate ability to maintain core contraction during trunk rotation to decrease prominence of Diastasis Recti. 07/31/24: HEP: sidelie TA w/ coordination of breath and also with mvmt. LTG Duration 11/01/24 progressed ex One Impairment Pt displays severe Diastasis Recti lifting head from supine Half-Way Goal (LTG) Pt to demonstrate ability to perform head lift in supine while maintaining tension throughout Diastasis Recti. 08/06/24: Bulging is present with head lifts, but length of bulge has decreased to 18 cm (was 21.5 cm). LTG Duration 11/01/24 progressing Assessment Summary Assessment 64 yo male with a large DR ( initially 21.5 cm long and 6.5 cm at widest point) and visible abdominal hernia, decr 'd kari hip active IR (12-14 degs), prior umbilical hernia rpr w/mesh. Today, pt shows improved DR 18 cm long, see palpation above for DR width assessment and improved passive hip IR mobility of 20? L, 25? R. He had difficulty tolerating exercises due to onset of LBP of insidious onset, but through discussion the pt may have strained his lower back (sacral region) after performing his wgt lifting ex of [employer] and standing rows w/ o UE support. The pt wants to decrease therapy to every 3 wks to be given more time to work on his home exercises before each appointment. I feel this would be appropriate as the pt has shown he can be consistent with his home exercises. Physical Therapy Plan Frequency and Duration Frequency of Treatment Every Other Week Duration of treatment (weeks) 12 Plan of Care Start Date 08/06/24 Plan of Care End Date 11/01/24 Therapeutic Interventions Therapeutic Interventions Home Exercise Program,Joint Mobilizations,Manual Therapy, Neuromuscular Re-education, Self-Care/Home Management,Soft Tissue Mobilization, Therapeutic Activities, Therapeutic Exercises Next Visit Focus/Plan Next Note Type Treatment Note Next Visit Plan rehab decr'd to 1x/3 wks. Next: Assess Active hip IR. Review self care manual trunk rot self stretch (protecting of abdominal mesh). Assist active hip IR stretch & add Iliopsoas stretch (if no increase hip pain with piriformis stretch). Cont TA strengthening (sup, 4 pt ex and side with leg lift/ clamshell). Manual: Stretch Trunk rotators (caution abdominal mesh). Ex: TA and trunk rotator strengthening. Plan of Care Dates Plan of Care Start Date 08/06/24 Plan of Care End Date 11/01/24 Electronically Signed by: Elsie Bryant, PT 08/06/24 [id number] If you are in agreement with this Plan of Care, please return a signed and dated copy. I have reviewed this Plan of Care and certify that the skilled therapy services above are required to meet the patient?s needs. Physician Signature Date Printed Name and Credentials Clinical Instructor Signature Printed Name and Credentials
--- NOTE | 2024-08-21 18:51 | PT.OTN ---
Current Diagnoses Separation of muscle (nontraumatic), other site (08/21/24) Physical Therapy Treatment Note PT-OP-A Visit Information Start: 06/08/24 16:05 Freq: Status: Active Protocol: Document 08/21/24 08:16 LRN (Rec: 08/21/24 09:00 LRN [id number]) Out-Patient Physical Therapy Visit Information Visit Information Visit Type Treatment Note Visit Start Time 08:16 Visit Stop Time 08:57 Visit Number 8 Evaluation Information Evaluation Date 06/08/24 Precautions Precautions Umbilical hernia rpr w/mesh PT-OP-B Current Condition Start: 06/08/24 16:05 Freq: Status: Active Protocol: Document 06/08/24 10:45 DCW (Rec: 06/08/24 16:29 DCW [id number]) Current Condition History of Current Condition Onset Date Five year history Current Complaints Diastasis Recti History of Current Condition Pt is a 64 year old male presenting with a ~5 year history of Diastasis Recti. Pt reports that due to various medications, he weight has yo- yo'ed over the past 5 years, starting with a sudden ballooning up and then losing 50 pounds about five years ago, and was left with a large Diastasis Recti. Pt reports that he was performing planks and crunches, and it seemed to go away. Recently, he was once again given new BP medication, and gained 30 pounds in a month, and 50 pounds over 45 total days. Then went off the medication, and lost 12 pounds in 15 days. Noticed at that time that his Diastasis had returned.Does not experience any unpleasant symptoms or pain, would just like to get rid of it. Does have a history of umbilical hernia with a mesh repair. PT-OP-C Subjective Start: 06/08/24 16:05 Freq: Status: Active Protocol: Document 08/21/24 08:16 LRN (Rec: 08/21/24 09:00 LRN [id number]) OP-PT Subjective Patient Comments Patient Comments States he has been doing all ex's 1x/day and all 2x/day 60% of the time. (5 EX'S, 40 minutes). Losing wgt, so making it easier to pull abdomen in. PT-OP-F Manual Assessment Start: 06/08/24 16:05 Freq: Status: Active Protocol: Document 08/06/24 08:19 LRN (Rec: 08/06/24 19:08 LRN [id number]) Manual Assessments Other Manual Assessments Other Manual Assessments Diastasis Rectus: Diastasis Recti length measured at 18 cm along abdominal midline. (At widest point, measured at 6.5 cm on 06/08/24). Umbilicus 5 above: Xiphoid process Umbilicus 4 above: 3 finger width (~2.5 cm) Umbilicus 3 above: 3 finger widths Umbilicus 2 above: 3.5 finger widths Umbilicus 1 above: 4 finger widths Umbilicus Umbilicus: 1 below: Closed PT-OP-K Range of Motion Start: 06/08/24 16:05 Freq: Status: Active Protocol: Document 08/21/24 08:16 LRN (Rec: 08/21/24 09:00 LRN [id number]) Hip Goniometric Range of Motion Hip Right Passive Testing Position Supine Internal Rotation 10 External Rotation 60 Left Passive Testing Position Supine Internal Rotation 10 External Rotation 60 PT-OP-M Strength Start: 06/08/24 16:05 Freq: Status: Active Protocol: Document 06/08/24 10:45 DCW (Rec: 06/08/24 16:29 DCW [id number]) Trunk Strength Trunk Manual Muscle Testing Comments Pt able to perform appropriate TrA contraction upon request, demonstrates good abdominal bracing. PT-OP-Q Treatments Start: 06/08/24 16:05 Freq: Status: Active Protocol: Document 08/21/24 08:16 LRN (Rec: 08/21/24 09:00 LRN [id number]) Therapeutic Exercises Supine Exercises Hip ER stretch Supine Exercise Name hip at 90/90 positioning Side bilateral Reps/Minutes 3' Comments ROM taken SKTC Supine Exercise Name SKTC Side bilateral Reps/Minutes 30 SH x 3 each TA tightening Supine Exercise Name Focus on educating pt in dff btn TA tight and bulging for tightening. Reps/Minutes 10' Lateral Hip Stretch Side bilateral Reps/Minutes 3' Comments Pt needed correction on form and hold for stretch Piriformis stretch Supine Exercise Name PT & pt stretching Side bilateral Reps/Minutes 7'' Comments ROM taken for IR Sidelying Exercises TA tightening Sidelying Exercise Name Extra reps on R side. Side bilateral Reps/Minutes 15x 2 Comments R TA weaker, not pulling in, adjacently inferior to ribs. Standing Exercises Pallof Press Standing Exercise Name Verbal review Reps/Minutes 2' Other Exercises 4 pt Other Exercise Name TA/chest breath, longhold during pt's slow breaths. Reps/Minutes 10 SH (3 breaths) x 3' Comments vc's needed to hold TA during breaths. Self-Care/Home Management Treatment Education Other Education Briefly discussed POC & schedule. Pt to schedule every 2 wks. PT-OP-T Assessment and Plan Start: 06/08/24 16:05 Freq: Status: Active Protocol: Document 08/21/24 08:16 LRN (Rec: 08/21/24 09:00 LRN [id number]) Physical Therapy Assessment Goals Three Impairment Pt presents with decreased active hip internal rotation ( 14?L, 13?R) Certified [employer] Engineer Goal (LTG) Pt to exhibit increased active hip internal rotation to >25? bilaterally in order to demonstrate improved functional hip mobility for performing daily activities. 08/06/24: Hip passive IR is 20? L, 25? R. LTG Duration 11/01/24 progressing 08/06/24 Two Impairment Diastasis Recti with trunk rotation Certified [employer] Engineer Goal (LTG) Pt to demonstrate ability to maintain core contraction during trunk rotation to decrease prominence of Diastasis Recti. 07/31/24: HEP: sidelie TA w/ coordination of breath and also with mvmt. LTG Duration 11/01/24 progressed ex One Impairment Pt displays severe Diastasis Recti lifting head from supine Penitentiary Goal (LTG) Pt to demonstrate ability to perform head lift in supine while maintaining tension throughout Diastasis Recti. 08/06/24: Bulging is present with head lifts, but length of bulge has decreased to 18 cm (was 21.5 cm). LTG Duration 11/01/24 progressing Assessment Summary Assessment Today pt returns with decr'd hip IR ROM (from 25 to 10 deg' s) as he has been doing Piriformis stretch partly correct. Hip ER is good at 60 deg's. Focus was on hip IR stretching and R TA strengthening. Physical Therapy Plan Frequency and Duration Frequency of Treatment Every Other Week Duration of treatment (weeks) 12 Plan of Care Start Date 08/06/24 Plan of Care End Date 11/01/24 Next Visit Focus/Plan Next Note Type Treatment Note Next Visit Plan DR shaikh decr'd to 1x/3 wks. Next: Assess hip IR - passive & active. Review self care manual trunk rot self stretch (protecting of abdominal mesh) . Assist active hip IR stretch & add Iliopsoas stretch (if no increase hip pain with piriformis stretch). Cont TA strengthening (sup, 4 pt ex and side with leg lift/ clamshell) and check if pt able to advance with more trunk rot strengthening. Manual: Stretch Trunk rotators (caution abdominal mesh). Ex: TA and trunk rotator strengthening.
--- NOTE | 2024-09-20 14:27 | PT-OP ANOTE ---
Per phone converstation the pt states he cancelled one appt due to coughing illness and cancelled the 2nd time because he had stopped doing the ex's and didn't want to waste PT time. Pt doesn't feel he will be consistent with ex's; therefore agreeable to discharge due to lack of progress from not doing the ex's and will seek a new referral if he decides he will be compliant with the PT program. Pt is being discharged to day from PT.
--- NOTE | 2024-09-20 14:38 | PT.OPDS ---
Current Diagnoses Separation of muscle (nontraumatic), other site (08/21/24) Visit Care Team Role Provider Type Deborah Augilar MD Attending Provider Physician Family Provider Primary Care Provider Referring Provider Specialty: Family Practice Obstetrics Address: [address] [place] [address], [address] Email: [email or web address] Visit Number Visit Number 8 Discharge Summary PT-OP-B Current Condition Start: 06/08/24 16:05 Freq: Status: Active Protocol: Document 06/08/24 10:45 DCW (Rec: 06/08/24 16:29 DCW [id number]) Current Condition History of Current Condition Onset Date Five year history Current Complaints Diastasis Recti History of Current Condition Pt is a 64 year old male presenting with a ~5 year history of Diastasis Recti. Pt reports that due to various medications, he weight has yo- yo'ed over the past 5 years, starting with a sudden ballooning up and then losing 50 pounds about five years ago, and was left with a large Diastasis Recti. Pt reports that he was performing planks and crunches, and it seemed to go away. Recently, he was once again given new BP medication, and gained 30 pounds in a month, and 50 pounds over 45 total days. Then went off the medication, and lost 12 pounds in 15 days. Noticed at that time that his Diastasis had returned.Does not experience any unpleasant symptoms or pain, would just like to get rid of it. Does have a history of umbilical hernia with a mesh repair. PT-OP-C Subjective Start: 06/08/24 16:05 Freq: Status: Active Protocol: Document 09/20/24 14:30 LRN (Rec: 09/20/24 14:38 LRN [id number]) OP-PT Subjective Patient Comments Patient Comments Per phone, pt is not being compliant with home exercises and is agreeable to DC from PT today. PT-OP-F Manual Assessment Start: 06/08/24 16:05 Freq: Status: Active Protocol: Document 08/06/24 08:19 LRN (Rec: 08/06/24 19:08 LRN [id number]) Manual Assessments Other Manual Assessments Other Manual Assessments Diastasis Rectus: Diastasis Recti length measured at 18 cm along abdominal midline. (At widest point, measured at 6.5 cm on 06/08/24). Umbilicus 5 above: Xiphoid process Umbilicus 4 above: 3 finger width (~2.5 cm) Umbilicus 3 above: 3 finger widths Umbilicus 2 above: 3.5 finger widths Umbilicus 1 above: 4 finger widths Umbilicus Umbilicus: 1 below: Closed PT-OP-K Range of Motion Start: 06/08/24 16:05 Freq: Status: Active Protocol: Document 08/21/24 08:16 LRN (Rec: 08/21/24 09:00 LRN [id number]) Hip Goniometric Range of Motion Hip Right Passive Testing Position Supine Internal Rotation 10 External Rotation 60 Left Passive Testing Position Supine Internal Rotation 10 External Rotation 60 PT-OP-M Strength Start: 06/08/24 16:05 Freq: Status: Active Protocol: Document 06/08/24 10:45 DCW (Rec: 06/08/24 16:29 DCW [id number]) Trunk Strength Trunk Manual Muscle Testing Comments Pt able to perform appropriate TrA contraction upon request, demonstrates good abdominal bracing. PT-OP-T Assessment and Plan Start: 06/08/24 16:05 Freq: Status: Active Protocol: Document 09/20/24 14:30 LRN (Rec: 09/20/24 14:38 LRN [id number]) Physical Therapy Assessment Goals Three Impairment Pt presents with decreased active hip internal rotation ( 14?L, 13?R) Audio Visual Tech Goal (LTG) Pt to exhibit increased active hip internal rotation to >25? bilaterally in order to demonstrate improved functional hip mobility for performing daily activities. 08/06/24: Hip passive IR is 20? L, 25? R. LTG Duration 11/01/24 progressed 08/06/24, goal not met. Two Impairment Diastasis Recti with trunk rotation Audio Visual Tech Goal (LTG) Pt to demonstrate ability to maintain core contraction during trunk rotation to decrease prominence of Diastasis Recti. 07/31/24: HEP: sidelie TA w/ coordination of breath and also with mvmt. LTG Duration 11/01/24 progressed ex , goal not met One Impairment Pt displays severe Diastasis Recti lifting head from supine Group Home Goal (LTG) Pt to demonstrate ability to perform head lift in supine while maintaining tension throughout Diastasis Recti. 08/06/24: Bulging is present with head lifts, but length of bulge has decreased to 18 cm (was 21.5 cm). LTG Duration 11/01/24 progressed 08/06/24 , goal not met. Assessment Summary Assessment 64 yo male attending therapy for Diastasis Rectus (DR) rehabilitation. Pt is with a large DR (initially 21.5 cm long and 6.5 cm at widest point) and visible abdominal hernia, decr'd kari hip active IR (12-14 degs), with prior umbilical hernia rpr w/mesh. The pt has cancelled his last 2 scheduled appts and did not have further appts scheduled. Per phone he agrees to DC from PT as he is not being compliant with HEP and he feels he is not seeing any improvment. The pt will seek a new referral if he decides he is ready to be more consistent with home exercises ' meanwhile he has an abdominal exercise HEP to work on. Physical Therapy Plan Discharge Physical Therapy Discharge Reasons Plateau in Progress Discharge Comments Pt agreeable to discharge from PT. Pt understands he will need to seek new referral to return to PT. Thank you for your referral.
== END 2024-09-28 12:30 | disposition home or self-care (01) ==
LOC: PHYS 08:15
PROVIDERS: Family Provider Student in an Organized Health Care Education/Training Program; PCP Student in an Organized Health Care Education/Training Program; Referring Provider Student in an Organized Health Care Education/Training Program; Visit Provider Student in an Organized Health Care Education/Training Program
DX: M62.08 Separation of muscle (nontraumatic), other site (principal)
CPT/HCPCS: 97110; 97140; 97161; 97535

== ENCOUNTER → 2024-09-17 09:06 | Outpatient (CLI) | payer OTHER, SELFPAY ==
--- NOTE | 2024-09-17 09:08 | DI.CT.S_ITS ---
PROCEDURE: CT KIDNEY URETER BLADDER (KUB) INDICATIONS: RENAL STONE TECHNIQUE: Axial sections were acquired from the lung bases to the pubic symphysis. Coronal and sagittal reformats were performed. For radiation dose reduction, the following was used: automated exposure control, adjustment of mA and/or kV according to patient size. COMPARISON: CT abdomen/pelvis 04/16/2023 FINDINGS: Image quality: Diagnostic. Lower Chest: No significant findings. URINARY: Right Kidney: 1.2 cm nonobstructing calculus inferior calyx of the right kidney Hounsfield units average 604. 3 mm nonobstructing calculus superior pole posteriorly. 3.2 cm right renal cyst. Right Ureter: No hydroureter. No right ureteral calculi. Left Kidney: No stones or hydronephrosis. Left Ureter: No hydroureter. Bladder: [id number] nonspecific wall thickening of the urinary bladder unchanged measures up to 1 cm thickness some of which may be artifact from partial nondistention although more likely chronic urinary retention, otherwise, cystitis or infiltrative bladder wall process could be considered. No bladder stones. Moderately enlarged prostate gland and seminal vesicles unchanged. Mild nonspecific wall thickening of the stomach unchanged, some of which may be artifact from partial nondistention although gastritis or other process could be considered. Moderate degenerative changes lower thoracic, lumbar spine most notably at L3-4, L4-5 and L5-S1 unchanged. Moderate diverticulosis of the distal descending and proximal sigmoid colon with nonspecific wall thickening commonly artifact from partial nondistention although slightly more than the on the prior exam. No pericolonic edema or other secondary findings of colitis or diverticulitis. Normal nondilated appendix measures 5mm diameter. [id number] calcifications of the abdominal aorta without CT evidence of aneurysm. Cholelithiasis with numerous 1-4 mm calcified gallstones. No CT evidence of gallbladder wall thickening or pericholecystic fluid. ABDOMEN: Liver: Liver is normal in size contour and attenuation. No CT evidence of focal hepatic lesion. Biliary ducts: No biliary dilation. Pancreas: No ductal dilation. Spleen: Size is within normal limits. Adrenal Glands: No adrenal nodules. Small Bowel: Normal caliber, without wall thickening. Peritoneum: No abnormal intraperitoneal fluid. No free air. Ventral Wall: No hernia. Abdominal Nodes: No enlarged retroperitoneal or mesenteric lymph nodes. Vessels: Aorta and inferior vena cava are normal in size. PELVIS: Pelvic Nodes: Unremarkable. Miscellaneous: No inguinal hernias are seen. IMPRESSION: Right renal nonobstructing calculi. No hydronephrosis, no hydroureter. Nonspecific wall thickening of the urinary bladder. Diverticulosis descending and sigmoid colon with mild wall thickening as discussed above. Moderately enlarged prostate gland and seminal vesicles. Other chronic findings as above. Dictated by: Miguel Vang M.D. on 09/17/2024 at 10:18 Approved by: Miguel Vang M.D. on 09/17/2024 at 10:30
== END ==
PROVIDERS: Family Provider Student in an Organized Health Care Education/Training Program; PCP Student in an Organized Health Care Education/Training Program; Referring Provider Nurse Practitioner; Visit Provider Nurse Practitioner
DX: N20.0 Calculus of kidney (principal); K57.30 Diverticulosis of large intestine without perforation or abscess without bleeding; N40.0 Benign prostatic hyperplasia without lower urinary tract symptoms; K80.20 Calculus of gallbladder without cholecystitis without obstruction; I70.0 Atherosclerosis of aorta; N28.1 Cyst of kidney, acquired; M47.816 Spondylosis without myelopathy or radiculopathy, lumbar region; M47.817 Spondylosis without myelopathy or radiculopathy, lumbosacral region; M47.814 Spondylosis without myelopathy or radiculopathy, thoracic region
CPT/HCPCS: 74176

== ENCOUNTER → 2024-10-25 12:59 | Outpatient (CLI) | payer OTHER, SELFPAY | PROVIDERS: Family Provider Student in an Organized Health Care Education/Training Program; PCP Student in an Organized Health Care Education/Training Program; Visit Provider Urology | DX: R39.9 Unspecified symptoms and signs involving the genitourinary system (principal) | CPT/HCPCS: 87086 ==

== ENCOUNTER → 2024-10-26 09:34 | Outpatient (CLI) | payer OTHER, SELFPAY ==
[2024-10-26 11:39] LABS: Add Manual Diff / Slide Review NO; Basophils Absolute Auto 100 /uL (0-100); Basophils Percent Auto 0.7 % (0-2); Eosinophils Absolute Auto 200 /uL (0-450); Eosinophils Percent Auto 2.5 % (2-4); Hematocrit 38.5 % (41-53); Hemoglobin 13.1 g/dL (13.5-17.5); Lymphocytes Absolute Auto 2200 /uL (1100-4500); Mean Corpuscular Hemoglobin 29.7 PG (26-34); Mean Corpuscular Volume 87.4 fL (80-100); Monocytes Absolute Auto 600 /uL (0-900); Monocytes Percent Auto 7.8 % (3-14); Neutrophils Absolute Auto 4600 /uL (1500-7000); Platelet Count 215 X10^3/uL (150-400); Red Blood Cell Count 4.41 X10^6/uL (4.5-5.9); Red Cell Distribution Width 14.9 % (11.6-14.8); White Blood Cell Count 7.6 X10^3/uL (4.5-11.0)
[2024-10-26 11:58] LABS: Hemoglobin A1C% w Est Avg Glu 5.9 % (4.0-6.0)
[2024-10-26 12:12] LABS: Alanine Aminotransferase 22 IU/L (<50); Albumin 4.4 g/dL (3.5-5.0); Albumin Globulin Ratio 1.6 (1.0-2.8); Alkaline Phosphatase 64 U/L (38-126); Aspartate Aminotransferase 15 IU/L (17-59); BUN Creatinine Ratio 19.1 (6-22); Bilirubin Total 0.6 mg/dL (0.2-1.3); Blood Urea Nitrogen 18 mg/dL (9-20); Calcium 9.3 mg/dL (8.4-10.2); Carbon Dioxide 25 mmol/L (22-32); Chloride 100 mmol/L (98-107); Cholesterol 270 mg/dL (140-199); Estimated Glomerular Filt Rate > 60 mL/min (>60); Globulin 2.8 g/dL (1.7-4.1); Glucose 108 mg/dL (70-99); HDL Cholesterol 50 mg/dL (40-60); HEMOLYSIS < 15 (0-50); LDL Cholesterol Calculated 189 mg/dL (<100); Potassium 4.1 mmol/L (3.4-5.1); Sodium 136 mmol/L (137-145); Total Protein 7.2 g/dL (6.3-8.2); Triglycerides 154 mg/dL (35-150)
[2024-10-26 13:13] LABS: Microalbumin Urine Random 32.4 mg/dL (0-1.6)
== END ==
PROVIDERS: Family Provider Student in an Organized Health Care Education/Training Program; PCP Student in an Organized Health Care Education/Training Program; Referring Provider Student in an Organized Health Care Education/Training Program; Visit Provider Student in an Organized Health Care Education/Training Program
DX: E11.9 Type 2 diabetes mellitus without complications (principal); Z79.899 Other long term (current) drug therapy
CPT/HCPCS: 36415; 80053; 80061; 82043; 82570; 83036; 85025

== ENCOUNTER 2024-11-27 11:45 | Day surgery (SDC) | payer OTHER, SELFPAY ==
[2024-11-23 08:43] VITALS: BMI 42.3
[2024-11-27] VITALS (8 sets, daily range): BP systolic 149–178; BP diastolic 73–93; PULSE 62–75; RESP 10–14; TEMP 36.2–36.5; O2SAT 97–100; BMI 42.3
--- NOTE | 2024-11-27 | DI.RAD.S_ITS ---
PROCEDURE: XR ABDOMEN 1V INDICATIONS: stent placement TECHNIQUE: 2 intra-operative images acquired by the Urology service. COMPARISON: None. FINDINGS/IMPRESSION: Intra procedural views during right ureteral stent placement. Right hydronephrosis is noted. Dictated by: Abdullahi Quintero M.D. on 11/28/2024 at 11:04 Approved by: Abdullahi Quintero M.D. on 11/28/2024 at 11:04
[2024-11-27] MEDS: LACTATED RINGERS 1,000 ML 42 ML IV ×2 (12:49→15:39)
--- NOTE | 2024-11-27 14:06 | PM.PREOP ---
Pre-operative Note COVID-19 COVID-19 status: Not tested Interval Note History & Physical reviewed/Exam performed by Physician: Yes Changes to H&P: No
[2024-11-27] MEDS: levoFLOXacin 500 MG/100 ML PIGGYBACK 100 MG IV (14:40)
--- NOTE | 2024-11-27 14:56 | SUR.OPER ---
Lithotomy on padded OR bed, head on pillow, arms secured on padded arm boards at <90 degrees abduction. Legs secured in padded yellow fins stirrups.
[2024-11-27] MEDS: iopamidoL 30 ML VIAL INJ (15:02)
--- NOTE | 2024-11-27 16:17 | PM.OP.1 ---
Operative Date/Time/Diagnoses Date of procedure: 11/27/24 Time of procedure: 15:00 Pre-op diagnosis: Right nephrolithiasis Post-op diagnosis: same Procedure & Clinicians Procedure: Cystoscopy Right retrograde ureteropyelogram Right ureteroscopy, laser lithotripsy Right ureteral stent placement Same procedure as scheduled: Yes Indications: 64 y/o M w/ h/o nephrolithiasis noted to have a 1.2cm right lower pole calculus who strongly desires surgical management. Discussed treatment options to include observation vs cystoscopy, ureteroscopy, laser lithotripsy with ureteral stent placement. Surgeon: Lv Gracia Click Yes if Unassisted: Yes Anesthesia Type: General Operative Notes Findings: Too numerous to count small to medium sized stones in right lower pole calyx Closure Type: not applicable Specimen(s): other (kidney stone) Applied: none Estimated Blood Loss (mL): 2 Blood products transfused: none Procedure in detail: Procedures: 1) Cystoscopy 2) Right retrograde ureteropyelogram 3) Right ureteroscopy, laser lithotripsy 4) Right ureteral stent placement 5) Intraoperative interpretation of fluoroscopic images, < 1 hour, all images saved to PACS Indication: Patient was identified in the preoperative holding area and consent confirmed. He was then brought to the operating room where general anesthesia was induced.? He was placed in the low lithotomy position. He was then prepped and draped in the usual sterile fashion. A surgical timeout was conducted and all were in agreement. ?Access to the bladder was obtained via a 30 degree cystoscope.? Complete cystoscopy was then performed and no concerning bladder masses or lesions were appreciated.? Bilateral ureteral orifices were easily identified and noted to be orthotopic in nature.? The right ureteral orifice was then easily cannulated using a 5Fr ureteral catheter and a 0.035 sensor tip ureteral guidewire was advanced through the catheter and into the right renal pelvis. The ureteral catheter and cystoscope were then removed. A 12/14Fr ureteral access sheath was then advanced over the ureteral guidewire and into the proximal right ureter.? The ureteral guidewire and inner obturator were then removed.? The flexible ureteroscope was then advanced through the ureteral access sheath and into the right renal collecting system.? Complete pyeloscopy was then performed and too numerous to count small to medium sized stones were appreciated in his right lower pole calyx.? Laser lithotripsy was then performed utilizing the 200 micron laser fiber.? All stone fragments >1mm in size were removed via the stone basket and sent for chemical analysis.? A retrograde pyelogram was then performed which noted no filling defects concerning for residual stone.? The ureteral guidewire was then readvanced through the ureteroscope and into the right renal pelvis.? The ureter was then directly visualized upon removal of the ureteroscope and ureteral access sheath and noted to be stone free.? The cystoscope was then backloaded over the ureteral guidewire and advanced into the bladder.? A 7Fr multi-length JJ ureteral stent with strings was then advanced over the ureteral guidewire.? Upon removal of the guidewire, a good curl was noted within the right renal pelvis upon fluoroscopy and visually within the bladder.? The bladder was then drained and the cystoscope was removed.? Anesthesia was reversed, he was extubated in the OR and transferred to the PACU in stable condition for recovery. Complications: none Post-operative Condition: stable Disposition: PACU Plan for aftercare: Will discharge home from PACU. Will return to Urology clinic in 3 months for a RBUS and stone analysis review.
[2024-11-27] MEDS: ACETAMINOPHEN 325 MG TABLET 975 MG PO (16:29)
[2024-11-27] MEDS: PHENAZOPYRIDINE 100 MG TABLET 200 MG PO (16:30)
--- NOTE | 2024-11-30 10:59 | SUR.OPER ---
[employer] laser system: Fiber diameter: 200um Fiber used 06/20 Duration: 0:37:31 Lasing Time: 0:03:34 Total emitted joules: 5.18kj Average power: 0.0w Maximum power: 25.0w
[2024-12-04 19:36] LABS: Ca oxalate dihydrate 20 % (.); Ca oxalate monohydr 80 % (.); Size 3x3 mm (.)
== END 2024-11-27 16:53 | disposition home or self-care (01) ==
PROVIDERS: Family Provider Student in an Organized Health Care Education/Training Program; PCP Student in an Organized Health Care Education/Training Program; Referring Provider Urology; Visit Provider Urology
PROC: 0TF68ZZ Fragmentation in Right Ureter, Via Natural or Artificial Opening Endoscopic (ICD-10-PCS; CPT 52353; principal; 2024-11-27 13:45)
DX: N20.0 Calculus of kidney (principal); N40.1 Benign prostatic hyperplasia with lower urinary tract symptoms; N13.8 Other obstructive and reflux uropathy; R31.9 Hematuria, unspecified; I10 Essential (primary) hypertension; E03.9 Hypothyroidism, unspecified; E11.9 Type 2 diabetes mellitus without complications; Z79.84 Long term (current) use of oral hypoglycemic drugs
CPT/HCPCS: 52353; 74018; 74420; 76000; 82365; C2617; J1956; Q9967

== ENCOUNTER → 2025-04-19 09:06 | Outpatient (CLI) | payer OTHER, SELFPAY ==
[2025-04-19 09:53] LABS: Add Manual Diff / Slide Review NO; Hematocrit 40.6 % (41-53); Hemoglobin 13.8 g/dL (13.5-17.5); Lymphocytes Absolute Auto 2500 /uL (1100-4500); Mean Corpuscular HGB Conc 34.1 % (30-36); Mean Corpuscular Hemoglobin 29.6 PG (26-34); Mean Corpuscular Volume 86.8 fL (80-100); Platelet Count 239 X10^3/uL (150-400)
[2025-04-19 10:02] LABS: Hemoglobin A1C% w Est Avg Glu 5.9 % (4.0-6.0)
[2025-04-19 10:14] LABS: Alanine Aminotransferase 22 IU/L (<50); Albumin 4.6 g/dL (3.5-5.0); Albumin Globulin Ratio 1.6 (1.0-2.8); Alkaline Phosphatase 55 U/L (38-126); Blood Urea Nitrogen 21 mg/dL (9-20); Calcium 10.1 mg/dL (8.4-10.2); Carbon Dioxide 29 mmol/L (22-32); Chloride 97 mmol/L (98-107); Cholesterol 233 mg/dL (140-199); Estimated Glomerular Filt Rate > 60 mL/min (>60); Globulin 2.8 g/dL (1.7-4.1); Glucose 115 mg/dL (70-99); HDL Cholesterol 53 mg/dL (40-60); HEMOLYSIS < 15 (0-50); Potassium 4.5 mmol/L (3.4-5.1); Sodium 135 mmol/L (137-145); Total Protein 7.4 g/dL (6.3-8.2); Triglycerides 157 mg/dL (35-150)
[2025-04-19 10:45] LABS: Thyroid Stimulating Hormone 2.51 uIU/mL (0.47-4.68)
[2025-04-19 11:14] LABS: Microalbumi Creatinin Ratio Ur 221.0 ug/mg CR (<30)
== END ==
PROVIDERS: Family Provider Student in an Organized Health Care Education/Training Program; PCP Student in an Organized Health Care Education/Training Program; Referring Provider Student in an Organized Health Care Education/Training Program; Visit Provider Student in an Organized Health Care Education/Training Program
DX: I10 Essential (primary) hypertension (principal); E11.29 Type 2 diabetes mellitus with other diabetic kidney complication; R80.9 Proteinuria, unspecified; E11.69 Type 2 diabetes mellitus with other specified complication; E78.5 Hyperlipidemia, unspecified
CPT/HCPCS: 36415; 80053; 80061; 82043; 82570; 83036; 84443; 85025